=== PATIENT | female | born 1980 | race Caucasian/White ===

== ENCOUNTER 2016-05-27 16:22 | Emergency (ER) | payer OTHER ==
[2016-05-27] MEDS ORDERED: methylPREDNISolone SOD SUCCI 125 MG/2 ML VIAL IV STA (16:40)
[2016-05-27] MEDS ORDERED: FAMOTIDINE 20 MG/2 ML VIAL IV STA (16:40)
[2016-05-27] MEDS ORDERED: diphenhydrAMINE 50 MG/ML 1 ML VIAL IVP STA (16:40)
[2016-05-27] MEDS ORDERED: IPRATROPIUM-ALBUTEROL 3 ML NEB INHALATION STA (16:41)
[2016-05-27] MEDS ORDERED: ACETAMINOPHEN IV (For NPO) 1,000 MG in SALINE 1 100ML.BAG IVPB STA (17:40)
--- NOTE | 2016-05-27 19:23 | ED ---
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 She was it in the emergency department for quite a few hours she states and discharged early this morning she states she had a recurrence of the itching and slight difficulty breathing prior to admission here. She was given steroids and medication she normally is on histamine 2 blockers. (Sriram Galvan) - Related Data Home Medications Medication Instructions Recorded Confirmed Carisoprodol [Soma] 350 mg PO QID PRN 11/02/14 05/27/16 Gabapentin [Neurontin] 300 mg PO DAILY 11/02/14 05/27/16 Cetirizine HCl [Zyrtec] 5 mg PO HS 05/27/16 05/27/16 Ranitidine HCl [Zantac] 75 mg PO HS 05/27/16 05/27/16 oxyCODONE-APAP 5-325MG [Percocet 1 tab PO Q6HR PRN 05/27/16 05/27/16 5-325 mg] Previous Rx's Medication Instructions Recorded Ranitidine HCl [Zantac] 150 mg PO BID #20 tab 05/27/16 predniSONE 50 mg PO DAILY #5 tab 05/27/16 Allergies Allergy/AdvReac Type Severity Reaction Status Date / Time promethazine HCl Allergy Unknown Verified 05/27/16 17:44 [From Phenergan] shellfish derived [Shrimp] Allergy Anaphylaxis Verified 05/27/16 17:45 Tetanus Vaccines and Toxoid Allergy Unknown Verified 05/27/16 17:44 [Tetanus Vaccines & Toxoid] Sulfa (Sulfonamide AdvReac SEE COMMENT Verified 05/27/16 17:44 Antibiotics) Review of Systems ROS Other: All systems not noted in ROS Statement are negative. <Sriram Galvan - Last Filed: 05/27/16 19:19> ROS Other: All systems not noted in ROS Statement are negative. <Zeeshan Wallace - Last Filed: 05/27/16 20:01> ROS Statement: Those systems with pertinent positive or pertinent negative responses have been documented in the HPI. Past Medical History Past Medical History: Fibromyalgia History of Any Multi-Drug Resistant Organisms: None Reported Past Surgical History: Adenoidectomy, Breast Surgery, Section, Orthopedic Surgery, Tonsillectomy Additional Past Surgical History / Comment(s): FOOT SURGERY (RIGHT) LEFT KNEE SURGERY TIMES 3 Past Psychological History: PTSD Smoking Status: Never smoker Past Alcohol Use History: Occasional Past Drug Use History: None Reported <Sriram Galvan - Last Filed: 05/27/16 19:19> General Exam Limitations: no limitations General appearance: alert, anxious, in distress Head exam: Present: atraumatic, normocephalic, normal inspection Eye exam: Present: normal appearance, PERRL, EOMI. Absent: scleral icterus, conjunctival injection, periorbital swelling ENT exam: Present: other (Posterior pharyngeal hyperemia) Neck exam: Present: normal inspection, other (No stridor JVD or bruits at this time). Absent: tenderness, meningismus, lymphadenopathy Respiratory exam: Present: decreased breath sounds Cardiovascular Exam: Present: tachycardia GI/Abdominal exam: Present: soft, normal bowel sounds. Absent: distended, tenderness, guarding, rebound, rigid Rectal exam: Present: deferred Extremities exam: Present: full ROM. Absent: tenderness Back exam: Absent: tenderness Neurological exam: Present: alert, oriented X3, CN II-XII intact Psychiatric exam: Present: anxious Skin exam: Present: warm, dry, erythema <Sriram Galvan - Last Filed: 05/27/16 19:19> <Zeeshan Wallace - Last Filed: 05/27/16 20:01> - General Exam Comments Initial Comments: This is a well developed well-nourished awake alert oriented 3 female (Sriram Galvan) Course <Sriram Galvan - Last Filed: 05/27/16 19:19> <Zeeshan Wallace - Last Filed: 05/27/16 20:01> Vital Signs 05/27/16 05/27/16 05/27/16 16:28 16:57 17:06 Temperature 97.8 F Pulse Rate 121 H 110 H 120 H Respiratory 20 Rate Blood Pressure 158/97 O2 Sat by Pulse 97 Oximetry 05/27/16 18:05 Temperature Pulse Rate 98 Respiratory 16 Rate Blood Pressure O2 Sat by Pulse 98 Oximetry At 1956 and she feels fine and she wants to go home, she has no hives at this point no signs of ALLERGIC reaction at this point she begun on 1 him steroids prednisone 40 mg daily for next 5 days Zantac and 50 mg twice daily for next 10 days and Claritin 10 mg once daily for next 10 days she does advise to avoid water in the ED for next few days and return to the ER if symptoms get worse ( Zeeshan Wallace) - Reevaluation(s) Reevaluation #1: 05/27/16 19:22 Reevaluation of the patient reveals she is somewhat improved she initially still has some erythema and itchiness but this is improved. She was complaining of shaking and feeling chilled (Sriram Galvan) Reevaluation #2: 05/27/16 19:22 Patient's chills have diminished. She still feeling somewhat lightheaded she initially was offered admission versus being discharged she is not sure what she wants to do yet. She will be observed for a period of time. Patient was endorsed to Dr. Wallace who will make the final disposition (Sriram Galvan) Disposition <Sriram Galvan - Last Filed: 05/27/16 19:19> <Zeeshan Wallace - Last Filed: 05/27/16 20:01> Clinical Impression: Allergic reaction Disposition: HOME SELF-CARE Condition: Good Instructions: Anaphylaxis (ED) Prescriptions: Ranitidine HCl [Zantac] 150 mg PO BID #20 tab predniSONE 50 mg PO DAILY #5 tab Referrals: Sindi Rico MD [Primary Care Provider] - 1-2 days
[2016-05-27 20:14] VITALS: BP 116/68; PULSE 92; RESP 18; TEMP 99
== END 2016-05-27 20:13 | disposition home or self-care (01) ==
LOC: EC 16:22
DX: T78.1XXA Other adverse food reactions, not elsewhere classified, initial encounter (principal); R06.00 Dyspnea, unspecified; Z79.899 Other long term (current) drug therapy; Z88.2 Allergy status to sulfonamides; Z88.7 Allergy status to serum and vaccine; Z91.013 Allergy to seafood; Z88.8 Allergy status to other drugs, medicaments and biological substances
CPT/HCPCS: 99283; 96374; 96375 ×3; 94640; J1200; J2930; J0131

== ENCOUNTER 2016-08-11 19:39 | Emergency (ER) | payer BC, OTHER ==
[2016-08-11] MEDS ORDERED: HYDROcodone/APAP 5-325MG 1 EACH TAB PO STA (22:14)
[2016-08-11] MEDS ORDERED: HYDROmorphone 1 MG/ML 1 ML SYRINGE IM STA (22:16)
[2016-08-11] MEDS ORDERED: FLUCONAZOLE 150 MG TAB PO STA (22:16)
--- NOTE | 2016-08-11 22:21 | ED ---
Female Urogenital HPI - General Chief complaint: Urogenital Stated complaint: Poss cyst rupture Time Seen by Provider: 08/11/16 21:25 Source: patient, RN notes reviewed Mode of arrival: ambulatory Limitations: no limitations - History of Present Illness Initial comments: Patient is a 36-year-old female presents to the emergency room for evaluation of vaginal and pelvic pain. patient states on Tuesday she began having vaginal burning and itching with discharge. Patient states she tried Monistat with no relief of symptoms. Patient states she tried apple cider vinegar on a cotton ball that she inserted into her vagina with no relief of symptoms. patient states that she went to [facility] and they gave her an injection of Toradol and Rocephin and sent her here to be further evaluated. Patient states she has a history of ovarian cysts that she thinks ruptured. Patient denies fevers or chills. Patient states she's having extreme vaginal discomfort that radiates up into her belly button. Patient denies nausea or vomiting.patient denies history of STDs. - Related Data Home Medications Medication Instructions Recorded Confirmed Carisoprodol [Soma] 350 mg PO QID PRN 11/02/14 05/27/16 Gabapentin [Neurontin] 300 mg PO DAILY 11/02/14 05/27/16 Cetirizine HCl [Zyrtec] 5 mg PO HS 05/27/16 05/27/16 Ranitidine HCl [Zantac] 75 mg PO HS 05/27/16 05/27/16 oxyCODONE-APAP 5-325MG [Percocet 1 tab PO Q6HR PRN 05/27/16 05/27/16 5-325 mg] Previous Rx's Medication Instructions Recorded Ranitidine HCl [Zantac] 150 mg PO BID #20 tab 05/27/16 predniSONE 50 mg PO DAILY #5 tab 05/27/16 Doxycycline [Vibramycin] 100 mg PO Q12HR 14 Days 08/11/16 Allergies Allergy/AdvReac Type Severity Reaction Status Date / Time promethazine HCl Allergy Unknown Verified 05/27/16 17:44 [From Phenergan] shellfish derived [Shrimp] Allergy Anaphylaxis Verified 05/27/16 17:45 Tetanus Vaccines and Toxoid Allergy Unknown Verified 05/27/16 17:44 [Tetanus Vaccines & Toxoid] Sulfa (Sulfonamide AdvReac SEE COMMENT Verified 05/27/16 17:44 Antibiotics) Review of Systems ROS Statement: Those systems with pertinent positive or pertinent negative responses have been documented in the HPI. ROS Other: All systems not noted in ROS Statement are negative. Past Medical History Past Medical History: Fibromyalgia History of Any Multi-Drug Resistant Organisms: None Reported Past Surgical History: Adenoidectomy, Breast Surgery, Section, Orthopedic Surgery, Tonsillectomy Additional Past Surgical History / Comment(s): FOOT SURGERY (RIGHT) LEFT KNEE SURGERY TIMES 3 Past Psychological History: PTSD Smoking Status: Never smoker Past Alcohol Use History: Occasional Past Drug Use History: None Reported General Exam - General Exam Comments Initial Comments: laying in exam room, no acute distress. Limitations: no limitations General appearance: alert, in no apparent distress Head exam: Present: atraumatic, normocephalic, normal inspection Eye exam: Present: normal appearance ENT exam: Present: normal exam Neck exam: Present: normal inspection Respiratory exam: Present: normal lung sounds bilaterally. Absent: respiratory distress Cardiovascular Exam: Present: regular rate, normal rhythm, normal heart sounds External exam: Present: erythema, swelling Speculum exam: Present: vaginal discharge. Absent: normal speculum exam By manual exam: Present: cervical motion tenderness, adnexal tenderness Extremities exam: Present: normal inspection Back exam: Present: normal inspection Neurological exam: Present: alert, oriented X3, CN II-XII intact, normal gait Psychiatric exam: Present: normal affect, normal mood Skin exam: Present: warm, dry, intact, normal color. Absent: rash Course Vital Signs 08/11/16 08/12/16 19:55 00:05 Temperature 97.5 F L 97.8 F Pulse Rate 89 86 Respiratory 16 18 Rate Blood Pressure 125/69 134/82 O2 Sat by Pulse 95 97 Oximetry Medical Decision Making - Medical Decision Making Patient is a 36-year-old female presents to the emergency room for evaluation of pelvic pain. Ultrasound showed a 2 cm simple ovarian cyst. No other acute findings noted. Patient was very uncomfortable during pelvic exam. Secondary to his symptoms, we'll treat patient for PID. Patient is a 29 given Rocephin at [facility]. TPatient will be given azithromycin and sent home with doxycycline. Patient states she understands everything that was discussed with her. Return parameters discussed. Case discussed with Dr. Wallace. - Lab Data Lab Results 08/11/16 08/11/16 Range/Units 23:00 23:00 Urine Color Yellow Urine Appearance Clear (Clear) Urine pH 6.0 (5.0-8.0) Ur Specific [place] 1.012 (1.001-1.035) Urine Protein Negative (Negative) Urine Glucose (UA) Negative (Negative) Urine Ketones Trace H (Negative) Urine Blood Small H (Negative) Urine Nitrite Negative (Negative) Urine Bilirubin Negative (Negative) Urine Urobilinogen <2.0 (<2.0) mg/dL Ur Leukocyte Esterase Moderate H (Negative) Urine RBC 11 H (0-5) /hpf Urine WBC 5 (0-5) /hpf Ur Squamous Epith Cells 1 (0-4) /hpf Urine Bacteria Rare H (None) /hpf Urine Mucus Rare H (None) /hpf Urine HCG, Qual Not Detected (Not Detectd) - Radiology Data Radiology results: report reviewed, image reviewed Disposition Clinical Impression: PID (pelvic inflammatory disease), Left ovarian cyst Disposition: HOME SELF-CARE Condition: Good Instructions: Pelvic Inflammatory Disease (ED), Ovarian Cyst (ED) Additional Instructions: Take antibiotics as directed. Refrain from sexual activity until symptoms resolve. Please follow-up with [employer]. If any new symptom arises or symptoms worsen, return to ER as soon as possible. Prescriptions: Doxycycline [Vibramycin] 100 mg PO Q12HR 14 Days Referrals: Sindi Rico MD [Primary Care Provider] - 1-2 days Joy Rodriguez DO [Doctor of Osteopathic Medicine] - 1-2 days Time of Disposition: 23:57
[2016-08-11 23:13] LABS: Appearance,Urine Clear (Clear); Bacteria,Urine Rare /hpf; Bilirubin,Urine Negative (Negative); Glucose,Urine (UA) Negative (Negative); Ketones,Urine Trace (Negative); Leukocyte Esterase,Urine Moderate (Negative); Mucus,Urine Rare /hpf; Nitrite,Urine Negative (Negative); Particle Count 3818; Protein,Urine Negative (Negative); RBC,Urine 11 /hpf (0-5); Specific Gravity,Urine 1.012 (1.001-1.035); Squamous Epithelial Cell,Urine 1 /hpf (0-4); UA Billing (MACRO vs. MICRO) MICRO; Urobilinogen,Urine <2.0 mg/dL (<2.0); WBC,Urine 5 /hpf (0-5)
--- NOTE | 2016-08-11 23:43 | US ---
EXAM: US Pelvis, Transvaginal CLINICAL HISTORY: Reason: Pelvic pain. TECHNIQUE: Real-time transvaginal pelvic ultrasound (complete) with image documentation. Transvaginal imaging was used for better evaluation of the endometrium and adnexa. COMPARISON: No relevant prior studies available. FINDINGS: Uterus/cervix: Uterus measures 8.0 x 4.6 x 4.3 cm. Endometrial stripe was measured at 8-9 mm. No myometrial mass. Right ovary: Right ovary 2.5 x 1.9 x 1.7 cm. Normal blood flow. Left ovary: Left ovary 3.7 x 2.3 x 1.8 cm, containing a simple appearing 2.0 x 1.9 cm cyst within. Normal blood flow. Free fluid: No free fluid. Bladder: Empty bladder which cannot be evaluated with this probe. IMPRESSION: 1. Simple appearing 2.0 cm left ovarian cyst, most likely physiologic. 2. Otherwise unremarkable transvaginal pelvic ultrasound.
[2016-08-11] MEDS ORDERED: AZITHROMYCIN 500 MG TAB PO STA (23:56)
[2016-08-11] MEDS ORDERED: DOXYCYCLINE 50 MG CAP PO STA (23:57)
[2016-08-12 00:06] VITALS: BP 134/82; PULSE 86; RESP 18; TEMP 97.8
== END 2016-08-12 00:15 | disposition home or self-care (01) ==
LOC: EC 19:39
DX: N83.202 Unspecified ovarian cyst, left side (principal); M79.7 Fibromyalgia; N73.9 Female pelvic inflammatory disease, unspecified; Z79.899 Other long term (current) drug therapy; Z88.2 Allergy status to sulfonamides; Z88.7 Allergy status to serum and vaccine; Z88.8 Allergy status to other drugs, medicaments and biological substances; Z91.013 Allergy to seafood
CPT/HCPCS: 87591; 87491; 81001; 81025; 93975; 76830; 99284; 96372; J1170

== ENCOUNTER 2017-04-14 09:29 | Day surgery (SDC) | payer BC ==
[2017-04-12 09:13] VITALS: BMI 29.2
[~2017-04-14 09:29] MED LIST: LACTATED RINGERS 1,000 ML IV SCH
[2017-04-14 09:49] VITALS: TEMP 98.5
[2017-04-14] MEDS ORDERED: LIDOCAINE 1% 20 ML VIAL (10MG/ML) FOR IV START INTRADERMA ONE (09:56)
[2017-04-14] MEDS ORDERED: LIDOCAINE 1% INJ 10MG/ML (20 ML MDV) ONE (10:47)
[2017-04-14] MEDS ORDERED: PROPOFOL 10 MG/ML 20 ML VIAL IV ONE (10:47)
--- NOTE | 2017-04-14 10:49 | P.GSHP ---
History of Present Illness H&P Date: 04/14/17 Chief Complaint: Hemorrhoids, GI bleed This a 29-year-old female patient stay for colonoscopy. Patient's had issues with hemorrhoids and rectal bleeding. Past Medical History Past Medical History: Fibromyalgia Additional Past Medical History / Comment(s): RSD. MCAD. FIBROCYSTIC TISSUE. IBS History of Any Multi-Drug Resistant Organisms: None Reported Past Surgical History: Adenoidectomy, Breast Surgery, Section, Orthopedic Surgery, Tonsillectomy Additional Past Surgical History / Comment(s): FOOT SURGERY (RIGHT) ,LEFT KNEE SURGERY TIMES 3, RT HIP SX, COLONOSCOPY, Past Anesthesia/Blood Transfusion Reactions: Previous Problems w/ Anesthesia Additional Past Anesthesia/Blood Transfusion Reaction / Comment(s): RESISTANCE TO ANESTHESIA Smoking Status: Never smoker - Past Family History Mother Family Medical History: Cancer Medications and Allergies Home Medications Medication Instructions Recorded Confirmed Type Gabapentin [Neurontin] 300 mg PO DAILY 11/02/14 04/14/17 History Cetirizine HCl [Zyrtec] 5 mg PO HS 05/27/16 04/14/17 History Baclofen [Lioresal] 20 mg PO HS 04/12/17 04/14/17 History Ranitidine HCl [Zantac] 150 mg PO DAILY 04/12/17 04/14/17 History diphenhydrAMINE [Benadryl] 50 mg PO HS PRN 04/12/17 04/14/17 History Allergies Allergy/AdvReac Type Severity Reaction Status Date / Time promethazine HCl Allergy TREMORS, Verified 04/12/17 09:00 [From Phenergan] VISION CHANGES shellfish derived [Shrimp] Allergy Anaphylaxis Verified 05/27/16 17:45 Tetanus Vaccines and Toxoid Allergy SWELLING Verified 04/12/17 09:00 [Tetanus Vaccines & Toxoid] AND REDNESS AT INJECTION SITE Sulfa (Sulfonamide AdvReac SEE COMMENT Verified 05/27/16 17:44 Antibiotics) Surgical - Exam Vital Signs Temp Pulse Resp BP Pulse Ox 98.5 F 88 16 111/76 97 04/14/17 09:48 04/14/17 09:48 04/14/17 09:48 04/14/17 09:48 04/14/17 09:48 - General well developed, no distress - Eyes PERRL - ENT normal pinna - Neck no masses - Respiratory normal expansion - Cardiovascular Rhythm: regular - Abdomen Abdomen: soft, non tender Assessment and Plan Assessment: Hemorrhoids, GI bleed. We'll perform colonoscopy.
--- NOTE | 2017-04-14 11:02 | P.OP ---
Date of Procedure: 04/14/17 Preoperative Diagnosis: GI bleed Hemorrhoids Postoperative Diagnosis: Internal and external hemorrhoids Procedure(s) Performed: Colonoscopy Anesthesia: MAC Surgeon: Osiel Farnsworth Pathology: none sent Condition: stable Disposition: PACU Description of Procedure: She was placed on the endoscopy table lateral position. She received IV sedation. Digital rectal exam was performed which revealed internal and external hemorrhoids. The flexible colonoscope was then placed patient anus and passed throughout the entire colon. The ileocecal valve was visualized. The cecum, ascending and transverse colon appeared normal. Scope was then brought back and sigmoid colon was normal. The scope summer back the rectum and this was normal. Scope was withdrawn through the anus and internal and external hemorrhoids were noted. Scope was withdrawn for patient.
[2017-04-14 11:31] VITALS: RESP 18
[2017-04-14 11:34] VITALS: BP 113/79; PULSE 85
--- NOTE | 2017-04-21 07:12 | CDI ---
Outpatient Documentation Clarification Form Date: 04/20/2017 CDS/Dental Resident Name: Torrey Collins Phone: If any questions, call Bee Gilman Water Safety Teacher at [phone] Patient Name: Lakshmi Johnson Admit Date: 04/14/2017 Discharge Date: 04/14/2017 ATTENTION: The [facility] Coding Staff appreciate your assistance in clarifying documentation. Please respond to the clarification below the line at the bottom and electronically sign. The [facility] Coding staff will review the response and follow-up if needed. Please note: Queries are made part of the Legal Health Record. If you have any questions, please contact the Water Safety Teacher. Dear Dr. Farnsworth, Indication for colonoscopy was GI bleeding; Post-operative diagnosis was Internal and external hemorrhoids, Please clarify the etiology of GI Bleeding was this secondary to hemorrhoids or incidental finding Based on your clinical opinion please clarify the etiology of GI Bleeding and relation with hemorrhoids Thank you for your kind consideration. I am unclear whether his source of GI bleeding was due to his internal and external hemorrhoids. SORAYA
== END 2017-04-14 11:35 | disposition home or self-care (01) ==
LOC: ORWHC2ENDO 09:29
PROVIDERS: ATTEND Surgery
DX: K64.8 Other hemorrhoids (principal); K64.4 Residual hemorrhoidal skin tags; K92.2 Gastrointestinal hemorrhage, unspecified; M79.7 Fibromyalgia; K58.9 Irritable bowel syndrome, unspecified; G90.50 Complex regional pain syndrome I, unspecified; Z88.2 Allergy status to sulfonamides; Z88.7 Allergy status to serum and vaccine; Z88.8 Allergy status to other drugs, medicaments and biological substances; Z91.013 Allergy to seafood; Z79.899 Other long term (current) drug therapy
CPT/HCPCS: 81025; 45378; J2001; J2704

== ENCOUNTER → 2017-04-18 | Outpatient (CLI) | payer BC ==
--- NOTE | 2017-04-19 07:48 | USB ---
Reason for exam: clinical finding. History: Family history of breast cancer in paternal aunt at age 48, breast cancer in paternal grandmother, and breast cancer in maternal aunt. Benign US LT VAD breast biopsy of the right breast, June 21, 2012. Benign right breast aspiration of the right breast, June 21, 2012. Taking hormonal contraceptives for 5 years beginning at age 17. Indicated problem(s): pain in both breasts. Physical Findings: Nurse did not find any significant physical abnormalities on exam. US Breast BILAT Right breast ultrasound includes all four quadrants, the retroareolar region and axilla. Finding demonstrates no cystic or solid lesion seen. Left breast ultrasound includes all four quadrants, the retroareolar region and axilla. Finding demonstrates no cystic or solid lesion seen. These results were verbally communicated with the patient and result sheet given to the patient on 04/18/17. ASSESSMENT: Negative, BI-RAD 1 RECOMMENDATION: Routine screening mammogram of both breasts at age 39. (unless clinical indication to start sooner) Manage on a clinical basis with regard to breast pain.
== END | disposition home or self-care (01) ==
LOC: RADUSWWP 14:20
PROVIDERS: ATTEND Surgery
DX: N60.01 Solitary cyst of right breast (principal); N60.02 Solitary cyst of left breast

== ENCOUNTER 2018-03-20 16:26 | Inpatient (IN) | payer BC, OTHER ==
[2018-03-20] MEDS ORDERED: SODIUM CHLORIDE 0.9% 2,000 ML IV STA (18:11)
[2018-03-20] MEDS ORDERED: HYDROmorphone 1 MG/ML 1 ML SYRINGE IVP STA (18:11)
[2018-03-20] MEDS ORDERED: ONDANSETRON 4 MG/2 ML VIAL IVP STA ×2 (18:11→19:29)
[2018-03-20] MEDS ORDERED: PANTOPRAZOLE 40 MG/10 ML VIAL IVP STA (18:11)
[2018-03-20 18:36] LABS: Basophils # (A) 0.3 k/uL (0-0.2); Basophils % (A) 2 %; Eosinophils # (A) 0.2 k/uL (0-0.7); Eosinophils % (A) 1 %; HCT 41.2 % (34.0-46.0); HGB 13.8 gm/dL (11.4-16.0); Lymphocytes # (A) 0.2 k/uL (1.0-4.8); Lymphocytes % (A) 1 %; MCH 31.2 pg (25.0-35.0); MCHC 33.6 g/dL (31.0-37.0); Monocytes # (A) 0.5 k/uL (0-1.0); Monocytes % (A) 3 %; Neutrophils # (A) 15.5 k/uL (1.3-7.7); Neutrophils % (A) 93 %; Platelet Count 337 k/uL (150-450); RBC 4.43 m/uL (3.80-5.40); RDW 13.4 % (11.5-15.5); WBC 16.6 k/uL (3.8-10.6)
--- NOTE | 2018-03-20 18:39 | ED ---
Abdominal Pain HPI - General Source: patient, family, RN notes reviewed Mode of arrival: ambulatory Limitations: no limitations <Gordon Katz - Last Filed: 03/20/18 20:59> <Viviana Arias - Last Filed: 03/20/18 23:53> - General Chief Complaint: Abdominal Pain Stated Complaint: vomiting/poss ulcer Time Seen by Provider: 03/20/18 18:05 - History of Present Illness Initial Comments: 37-year-old female presents emergency Department chief complaint of severe upper abdominal pain. Patient states started earlier this morning after drinking 3 sips of coffee with cream her. Patient states she has had ongoing heartburn issues over the last 1 month. She does admit that she take Zantac and Pepcid daily. Patient never had an EGD or colonoscopy. Patient denies any current GI physician. Patient denies constipation, dysuria. Patient has no any frequency, dysuria. Patient states that she had slight diarrhea thought she saw blood but never saw again. Patient does have known hemorrhoids. Patient states she does not take any blood thinners. Patient has no history: Significant for appendectomy. (Gordon Katz) - Related Data Home Medications Medication Instructions Recorded Confirmed Gabapentin [Neurontin] 300 mg PO HS 11/02/14 03/20/18 Cetirizine HCl [Zyrtec] 5 mg PO HS 05/27/16 03/20/18 Ranitidine HCl [Zantac] 150 mg PO HS 04/12/17 03/20/18 diphenhydrAMINE [Benadryl] 50 mg PO HS PRN 04/12/17 03/20/18 Allergies Allergy/AdvReac Type Severity Reaction Status Date / Time promethazine HCl Allergy TREMORS, Verified 03/20/18 18:14 [From Phenergan] VISION CHANGES shellfish derived [Shrimp] Allergy Anaphylaxis Verified 03/20/18 18:14 Tetanus Vaccines and Toxoid Allergy SWELLING Verified 03/20/18 18:14 [Tetanus Vaccines & Toxoid] AND REDNESS AT INJECTION SITE Sulfa (Sulfonamide AdvReac SEE COMMENT Verified 03/20/18 18:14 Antibiotics) sulfa eye drops Allergy Unknown Uncoded 03/20/18 16:41 Review of Systems ROS Other: All systems not noted in ROS Statement are negative. <Gordon Katz - Last Filed: 03/20/18 20:59> ROS Other: All systems not noted in ROS Statement are negative. <AriasViviana fair P - Last Filed: 03/20/18 23:53> ROS Statement: Those systems with pertinent positive or pertinent negative responses have been documented in the HPI. Past Medical History Past Medical History: Fibromyalgia Additional Past Medical History / Comment(s): RSD. MCAD. FIBROCYSTIC TISSUE. IBS History of Any Multi-Drug Resistant Organisms: None Reported Past Surgical History: Adenoidectomy, Breast Surgery, Section, Orthopedic Surgery, Tonsillectomy Additional Past Surgical History / Comment(s): FOOT SURGERY (RIGHT) ,LEFT KNEE SURGERY TIMES 3, RT HIP SX, COLONOSCOPY, Past Anesthesia/Blood Transfusion Reactions: Previous Problems w/ Anesthesia Additional Past Anesthesia/Blood Transfusion Reaction / Comment(s): RESISTANCE TO ANESTHESIA Past Psychological History: PTSD Smoking Status: Never smoker Past Alcohol Use History: Occasional Past Drug Use History: None Reported - Past Family History Mother Family Medical History: Cancer <Gordon Katz M - Last Filed: 03/20/18 20:59> - Past Family History Mother Family Medical History: Cancer, Thyroid Disorder Father Family Medical History: Cancer, Hypertension <HugoAquilinoViviana P - Last Filed: 03/20/18 23:53> General Exam Limitations: no limitations General appearance: alert, in no apparent distress Head exam: Present: atraumatic, normocephalic, normal inspection Eye exam: Present: normal appearance, PERRL, EOMI. Absent: scleral icterus, conjunctival injection, periorbital swelling ENT exam: Present: normal exam, normal oropharynx, mucous membranes moist Neck exam: Present: normal inspection, full ROM. Absent: tenderness, meningismus, lymphadenopathy Respiratory exam: Present: normal lung sounds bilaterally. Absent: respiratory distress, wheezes, rales, rhonchi, stridor Cardiovascular Exam: Present: normal rhythm, tachycardia, normal heart sounds. Absent: systolic murmur, diastolic murmur, rubs, gallop, clicks GI/Abdominal exam: Present: soft, tenderness (Moderate upper abdominal tenderness), normal bowel sounds. Absent: distended, guarding, rebound, rigid Back exam: Absent: CVA tenderness (R), CVA tenderness (L) Skin exam: Present: warm, dry, intact, normal color. Absent: rash <Dedoe,Gordon M - Last Filed: 03/20/18 20:59> Vital Signs 03/20/18 03/20/18 03/20/18 16:37 19:18 21:52 Temperature 98.3 F Pulse Rate 133 H 102 H 88 Respiratory 20 18 16 Rate Blood Pressure 127/83 122/86 122/88 O2 Sat by Pulse 99 100 100 Oximetry Medical Decision Making - Lab Data Result diagrams: 03/20/18 17:57 03/20/18 17:57 <Gordon Katz - Last Filed: 03/20/18 20:59> - Lab Data Result diagrams: 03/20/18 17:57 03/20/18 17:57 <Viviana Arias - Last Filed: 03/20/18 23:53> - Medical Decision Making 37-year-old female presented for abdominal pain. Patient's found to have evidence of [id number] bowel disease. Patient's had intractable abdominal pain with multiple rounds of IV pain meds. Patient will be admitted for GI consult. Control hydration (Gordon Katz) I personally saw and examined the patient. I reviewed and agree with the mid- level provider findings including all diagnostic interpretations and treatment plans as written unless otherwise stated. I discussed patient care with Dr. Fuentes who agreed with plan for admission with consult to gastroenterology and requested that 60 mg IV Solu-Medrol be ordered every 6 hours. (Viviana Arias) - Lab Data Lab Results 03/20/18 03/20/18 03/20/18 Range/Units 17:57 17:57 17:57 WBC 16.6 H (3.8-10.6) k/uL RBC 4.43 (3.80-5.40) m/uL Hgb 13.8 (11.4-16.0) gm/dL Hct 41.2 (34.0-46.0) % MCV 93.0 (80.0-100.0) fL MCH 31.2 (25.0-35.0) pg MCHC 33.6 (31.0-37.0) g/dL RDW 13.4 (11.5-15.5) % Plt Count 337 (150-450) k/uL Neutrophils % 93 % Lymphocytes % 1 % Monocytes % 3 % Eosinophils % 1 % Basophils % 2 % Neutrophils # 15.5 H (1.3-7.7) k/uL Lymphocytes # 0.2 L (1.0-4.8) k/uL Monocytes # 0.5 (0-1.0) k/uL Eosinophils # 0.2 (0-0.7) k/uL Basophils # 0.3 H (0-0.2) k/uL Sodium 139 (137-145) mmol/L Potassium 3.9 (3.5-5.1) mmol/L Chloride 104 (98-107) mmol/L Carbon Dioxide 25 (22-30) mmol/L Anion Gap 10 mmol/L BUN 13 (7-17) mg/dL Creatinine 0.62 (0.52-1.04) mg/dL Est GFR (CKD-EPI)AfAm >90 (>60 ml/min/1.73 sqM) Est GFR (CKD-EPI)NonAf >90 (>60 ml/min/1.73 sqM) Glucose 102 H (74-99) mg/dL Plasma Lactic Acid Nathanael 1.3 (0.7-2.0) mmol/L Calcium 9.5 (8.4-10.2) mg/dL Total Bilirubin 0.9 (0.2-1.3) mg/dL AST 20 (14-36) U/L ALT 21 (9-52) U/L Alkaline Phosphatase 77 (38-126) U/L Total Protein 7.3 (6.3-8.2) g/dL Albumin 4.6 (3.5-5.0) g/dL Amylase 37 (30-110) U/L Lipase 31 (23-300) U/L Urine Color Urine Appearance (Clear) Urine pH (5.0-8.0) Ur Specific [place] (1.001-1.035) Urine Protein (Negative) Urine Glucose (UA) (Negative) Urine Ketones (Negative) Urine Blood (Negative) Urine Nitrite (Negative) Urine Bilirubin (Negative) Urine Urobilinogen (<2.0) mg/dL Ur Leukocyte Esterase (Negative) Urine RBC (0-5) /hpf Urine WBC (0-5) /hpf Ur Squamous Epith Cells (0-4) /hpf Urine Mucus (None) /hpf Urine HCG, Qual (Not Detectd) 03/20/18 03/20/18 Range/Units 19:14 19:14 WBC (3.8-10.6) k/uL RBC (3.80-5.40) m/uL Hgb (11.4-16.0) gm/dL Hct (34.0-46.0) % MCV (80.0-100.0) fL MCH (25.0-35.0) pg MCHC (31.0-37.0) g/dL RDW (11.5-15.5) % Plt Count (150-450) k/uL Neutrophils % % Lymphocytes % % Monocytes % % Eosinophils % % Basophils % % Neutrophils # (1.3-7.7) k/uL Lymphocytes # (1.0-4.8) k/uL Monocytes # (0-1.0) k/uL Eosinophils # (0-0.7) k/uL Basophils # (0-0.2) k/uL Sodium (137-145) mmol/L Potassium (3.5-5.1) mmol/L Chloride (98-107) mmol/L Carbon Dioxide (22-30) mmol/L Anion Gap mmol/L BUN (7-17) mg/dL Creatinine (0.52-1.04) mg/dL Est GFR (CKD-EPI)AfAm (>60 ml/min/1.73 sqM) Est GFR (CKD-EPI)NonAf (>60 ml/min/1.73 sqM) Glucose (74-99) mg/dL Plasma Lactic Acid Nathanael (0.7-2.0) mmol/L Calcium (8.4-10.2) mg/dL Total Bilirubin (0.2-1.3) mg/dL AST (14-36) U/L ALT (9-52) U/L Alkaline Phosphatase (38-126) U/L Total Protein (6.3-8.2) g/dL Albumin (3.5-5.0) g/dL Amylase (30-110) U/L Lipase (23-300) U/L Urine Color Yellow Urine Appearance Clear (Clear) Urine pH 7.0 (5.0-8.0) Ur Specific [place] 1.023 (1.001-1.035) Urine Protein Trace H (Negative) Urine Glucose (UA) Negative (Negative) Urine Ketones 1+ H (Negative) Urine Blood Moderate H (Negative) Urine Nitrite Negative (Negative) Urine Bilirubin Negative (Negative) Urine Urobilinogen <2.0 (<2.0) mg/dL Ur Leukocyte Esterase Negative (Negative) Urine RBC 12 H (0-5) /hpf Urine WBC 1 (0-5) /hpf Ur Squamous Epith Cells 5 H (0-4) /hpf Urine Mucus Occasional H (None) /hpf Urine HCG, Qual Not Detected (Not Detectd) Disposition <Gordon Katz M - Last Filed: 03/20/18 20:59> <Viviana Arias P - Last Filed: 03/20/18 23:53> Clinical Impression: IBD (inflammatory bowel disease), Intractable abdominal pain Disposition: ADMITTED IP TO THIS HOSP Condition: Fair
[2018-03-20 18:45] LABS: ALT 21 U/L (9-52); AST 20 U/L (14-36); Albumin 4.6 g/dL (3.5-5.0); Alkaline Phosphatase 77 U/L (38-126); Amylase 37 U/L (30-110); Anion Gap 10 mmol/L; Blood Urea Nitrogen 13 mg/dL (7-17); Calcium 9.5 mg/dL (8.4-10.2); Carbon Dioxide 25 mmol/L (22-30); Chloride 104 mmol/L (98-107); Glucose 102 mg/dL (74-99); Lipase 31 U/L (23-300); Potassium 3.9 mmol/L (3.5-5.1); Sodium 139 mmol/L (137-145); Total Bilirubin 0.9 mg/dL (0.2-1.3); Total Protein 7.3 g/dL (6.3-8.2)
--- NOTE | 2018-03-20 19:14 | US ---
EXAMINATION TYPE: US gallbladder DATE OF EXAM: 03/20/2018 COMPARISON: NONE CLINICAL HISTORY: Pain. Pain and vomiting EXAM MEASUREMENTS: Liver Length: 17.4 cm Gallbladder Wall: 0.3 cm CBD: 0.5 cm Right Kidney: 9.6 x 3.7 x 4.5 cm Pancreas: Duct visualized 2 mm. Liver: wnl Gallbladder: wnl Evidence for sonographic Hartley's sign: No CBD: wnl Right Kidney: wnl IMPRESSION: Negative right upper quadrant abdominal sonogram. No gallstones or dilated ducts. No free fluid.
[2018-03-20] MEDS ORDERED: IOPAMIDOL-300 CONTRAST 30 ML VIAL (ORAL USE) PO PRN (19:27)
[2018-03-20] MEDS ORDERED: HYDROmorphone 0.5 MG/0.5 ML SYRINGE IVP STA ×2 (19:29→20:59)
[2018-03-20 19:34] LABS: Appearance,Urine Clear (Clear); Bilirubin,Urine Negative (Negative); Blood,Urine Moderate (Negative); Color,Urine Yellow; Glucose,Urine (UA) Negative (Negative); Ketones,Urine 1+ (Negative); Leukocyte Esterase,Urine Negative (Negative); Mucus,Urine Occasional /hpf; Nitrite,Urine Negative (Negative); Protein,Urine Trace (Negative); RBC,Urine 12 /hpf (0-5); Specific Gravity,Urine 1.023 (1.001-1.035); Squamous Epithelial Cell,Urine 5 /hpf (0-4); Urobilinogen,Urine <2.0 mg/dL (<2.0); WBC,Urine 1 /hpf (0-5)
--- NOTE | 2018-03-20 20:29 | CT ---
EXAMINATION TYPE: CT abdomen pelvis w con DATE OF EXAM: 03/20/2018 COMPARISON: None HISTORY: abdominal pain CT DLP: 741 mGycm Automated exposure control for dose reduction was used. TECHNIQUE: Helical acquisition of images was performed from the lung bases through the pelvis. CONTRAST: Performed with Oral Contrast and with IV Contrast, patient injected with 100 mL of Isovue 300. FINDINGS: There is mild subsegmental atelectasis at the lung bases. There is no pleural effusion. Heart size is normal. Liver spleen pancreas appear normal. Bile ducts are not dilated. Gallbladder appears normal. There is no adrenal mass. The kidneys of normal size and contour. There is no hydronephrosis. There is no ret roperitoneal adenopathy. There is mild free fluid in the pelvis. Bladder distends smoothly. There is no inguinal hernia. Kidneys show satisfactory contrast opacification. Uterus is anteverted. I see no pelvic mass. There is some wall thickening of the distal ileum. I see no sign of a bowel obstruction. The appendix appears normal. IMPRESSION: THERE ARE MULTIPLE LOOPS OF DISTAL ILEUM WITH WALL THICKENING SUGGESTIVE OF INFLAMMATORY BOWEL DISEAS E. NO FREE AIR. NORMAL APPENDIX.
[2018-03-20] MEDS ORDERED: diphenhydrAMINE 50 MG/ML 1 ML VIAL IVP STA (20:59)
[2018-03-20] MEDS ORDERED: MAG HYDROX/AL HYDROX/SIMETH 30 ML, HYOSCYAMINE ELIXIR 10 ML, CIMETIDINE HCL 300 MG PO STA ×3 (20:59)
[2018-03-20] MEDS ORDERED: NALOXONE 0.4 MG/ML 1 ML VIAL IV PRN (21:00)
[2018-03-20] MEDS ORDERED: HYDROmorphone 0.5 MG/0.5 ML SYRINGE IVP PRN (21:00)
[2018-03-20 22:23] VITALS: BMI 28.3
[2018-03-20] MEDS ORDERED: diphenhydrAMINE 25 MG CAP PO PRN (23:13)
[2018-03-20] MEDS: methylPREDNISolone SOD SUCCI 125 MG/2 ML VIAL IV SCH ×2 (23:19→23:23)
[2018-03-21] MEDS: HYDROmorphone 1 MG/ML 1 ML SYRINGE IVP PRN ×6 (02:09→22:57)
[2018-03-21] MEDS: ONDANSETRON 4 MG/2 ML VIAL IVP PRN ×2 (05:08→20:09)
[2018-03-21] MEDS: methylPREDNISolone SOD SUCCI 125 MG/2 ML VIAL IV SCH (05:56)
[2018-03-21] MEDS: CYCLOBENZAPRINE 10 MG TAB PO PRN ×3 (05:57→22:58)
[2018-03-21] MEDS: SODIUM CHLORIDE 0.9% 1,000 ML IV SCH ×3 (07:38→22:10)
[2018-03-21 09:16] LABS: Basophils % (A) 0 %; Eosinophils % (A) 0 %; HCT 35.9 % (34.0-46.0); HGB 11.9 gm/dL (11.4-16.0); Lymphocytes # (A) 0.3 k/uL (1.0-4.8); Lymphocytes % (A) 3 %; MCH 31.6 pg (25.0-35.0); MCHC 33.3 g/dL (31.0-37.0); MCV 94.8 fL (80.0-100.0); Mean Platelet Volume 7.1; Monocytes # (A) 0.1 k/uL (0-1.0); Monocytes % (A) 1 %; Neutrophils # (A) 8.8 k/uL (1.3-7.7); Neutrophils % (A) 95 %; Platelet Count 286 k/uL (150-450); RBC 3.78 m/uL (3.80-5.40); RDW 13.6 % (11.5-15.5); WBC 9.2 k/uL (3.8-10.6)
[2018-03-21] MEDS: PANTOPRAZOLE 40 MG/10 ML VIAL IV SCH (09:19)
[2018-03-21 09:35] LABS: ALT 16 U/L (9-52); AST 16 U/L (14-36); Albumin 3.8 g/dL (3.5-5.0); Alkaline Phosphatase 53 U/L (38-126); Anion Gap 10 mmol/L; Blood Urea Nitrogen 7 mg/dL (7-17); Carbon Dioxide 22 mmol/L (22-30); Chloride 106 mmol/L (98-107); Glucose 155 mg/dL (74-99); Potassium 4.3 mmol/L (3.5-5.1); Sodium 138 mmol/L (137-145); Total Bilirubin 0.4 mg/dL (0.2-1.3); Total Protein 6.4 g/dL (6.3-8.2)
--- NOTE | 2018-03-21 10:37 | P.HPIM ---
History of Present Illness H&P Date: 03/21/18 This is a 37-year-old female patient of Dr. Rico. Patient presented to the emergency room with complaint of right upper abdominal pain. Patient reports that she's been having intermittent abdominal discomfort for the past couple months. Patient states yesterday she had 3 sips of coffee and then experienced severe upper abdominal pain with vomiting and diarrhea. Patient has past medical history of fibromyalgia, MCAD, anxiety and PTSD. Gallbladder ultrasound completed showing negative right upper quadrant abdominal sonogram. No gallstones or dilated ducts. No free fluid. Abdominal pelvic CT completed showing multiple loops of distal ileum or pleural thickening suggestive of inflammatory bowel disease. No free air. Normal appendix. Normal appendix. Amylase and lipase within normal limits. Initial white blood cell 16.6. Patient did receive some fluids. Repeat WBC 9.2. C. diff stool sample has been ordered. GI services have been consulted. Patient remains afebrile. At this time patient denies chest pain or shortness of breath. Patient is complaining of some abdominal discomfort to palpation in with movement. Patient denies nausea or vomiting at this time. Patient denies any urinary burning or frequency. Review of Systems Please refer to HPI otherwise unremarkable Past Medical History Past Medical History: Fibromyalgia Additional Past Medical History / Comment(s): RSD. MCAD. FIBROCYSTIC TISSUE. EDS History of Any Multi-Drug Resistant Organisms: None Reported Past Surgical History: Adenoidectomy, Breast Surgery, Section, Orthopedic Surgery, Tonsillectomy Additional Past Surgical History / Comment(s): FOOT SURGERY (RIGHT) ,LEFT KNEE SURGERY TIMES 3, RT HIP SX, COLONOSCOPY, nerve blocks in back Past Anesthesia/Blood Transfusion Reactions: Previous Problems w/ Anesthesia Additional Past Anesthesia/Blood Transfusion Reaction / Comment(s): RESISTANCE TO ANESTHESIA Past Psychological History: Anxiety, PTSD Additional Psychological History / Comment(s): daughter had brain surgery and this caused some slight anxiety Smoking Status: Never smoker Past Alcohol Use History: Occasional Past Drug Use History: None Reported - Past Family History Mother Family Medical History: Cancer, Thyroid Disorder Father Family Medical History: Cancer, Hypertension Medications and Allergies Home Medications Medication Instructions Recorded Confirmed Type Gabapentin [Neurontin] 300 mg PO HS 11/02/14 03/20/18 History Cetirizine HCl [Zyrtec] 5 mg PO HS 05/27/16 03/20/18 History Ranitidine HCl [Zantac] 150 mg PO HS 04/12/17 03/20/18 History diphenhydrAMINE [Benadryl] 50 mg PO HS PRN 04/12/17 03/20/18 History Allergies Allergy/AdvReac Type Severity Reaction Status Date / Time promethazine HCl Allergy TREMORS, Verified 03/20/18 18:14 [From Phenergan] VISION CHANGES shellfish derived [Shrimp] Allergy Anaphylaxis Verified 03/20/18 18:14 Tetanus Vaccines and Toxoid Allergy SWELLING Verified 03/20/18 18:14 [Tetanus Vaccines & Toxoid] AND REDNESS AT INJECTION SITE Sulfa (Sulfonamide AdvReac SEE COMMENT Verified 03/20/18 18:14 Antibiotics) sulfa eye drops Allergy Unknown Uncoded 03/20/18 16:41 Physical Exam Vitals: Vital Signs Temp Pulse Pulse Resp BP BP BP 03/21/18 07:15 98.4 F 99 16 108/71 03/21/18 04:58 108/71 03/21/18 04:00 96 15 03/21/18 00:00 96 15 03/20/18 22:20 96 15 03/20/18 22:16 98.2 F 96 15 125/87 03/20/18 21:52 88 16 122/88 03/20/18 19:18 102 H 18 122/86 03/20/18 16:37 98.3 F 133 H 20 127/83 Pulse Ox 03/21/18 07:15 96 03/21/18 04:58 03/21/18 04:00 03/21/18 00:00 03/20/18 22:20 03/20/18 22:16 100 03/20/18 21:52 100 03/20/18 19:18 100 03/20/18 16:37 99 Intake and Output 03/20/18 03/21/18 03/21/18 22:59 06:59 14:59 Other: Voiding Method Toilet Toilet # Voids 2 Weight 70.307 kg 70.307 kg Head normocephalic Neck supple Lungs clear to auscultation bilaterally no wheezing or crackles Heart regular rate and rhythm S1-S2, no rub or gallop Abdomen is soft and tender to upper abdomen palpation Extremities no edema Neuro alert and orientated to 3 Results CBC & Chem 7: 03/21/18 08:32 03/21/18 08:32 Labs: Abnormal Lab Results - Last 24 Hours (Table) 03/20/18 03/20/18 03/20/18 Range/Units 17:57 17:57 19:14 WBC 16.6 H (3.8-10.6) k/uL RBC (3.80-5.40) m/uL Neutrophils # 15.5 H (1.3-7.7) k/uL Lymphocytes # 0.2 L (1.0-4.8) k/uL Basophils # 0.3 H (0-0.2) k/uL Glucose 102 H (74-99) mg/dL Urine Protein Trace H (Negative) Urine Ketones 1+ H (Negative) Urine Blood Moderate H (Negative) Urine RBC 12 H (0-5) /hpf Ur Squamous Epith Cells 5 H (0-4) /hpf Urine Mucus Occasional H (None) /hpf 03/21/18 03/21/18 Range/Units 08:32 08:32 WBC (3.8-10.6) k/uL RBC 3.78 L (3.80-5.40) m/uL Neutrophils # 8.8 H (1.3-7.7) k/uL Lymphocytes # 0.3 L (1.0-4.8) k/uL Basophils # (0-0.2) k/uL Glucose 155 H (74-99) mg/dL Urine Protein (Negative) Urine Ketones (Negative) Urine Blood (Negative) Urine RBC (0-5) /hpf Ur Squamous Epith Cells (0-4) /hpf Urine Mucus (None) /hpf Thrombosis Risk Factor Assmnt - Choose All That Apply Any of the Below Risk Factors Present?: Yes Each Factor Represents 1 point: Obesity (BMI >25) Other Risk Factors: No Other congenital or acquired thrombophilia - If yes, enter type in comment: No Thrombosis Risk Factor Assessment Total Risk Factor Score: 1 Thrombosis Risk Factor Assessment Level: Low Risk Assessment and Plan Assessment: 1. Abdominal pain with nausea, vomiting and diarrhea. Ultrasound of gallbladder completed showing negative right upper quadrant abdominal sonogram. No gallstones or dilated ducts. No free fluid. CT of abdomen and pelvis completed showing multiple loops of distal ileum with wall thickening suggestive of inflammatory bowel disease. No free air. Normal appendix. Amylase and lipase within normal limits. GI services have been consulted. Stool for C. diff has been ordered. Patient also started on IV Solu-Medrol per ER. 2. History of fibromyalgia. 3. History of MCAD 4. History of anxiety and PTSD
--- NOTE | 2018-03-21 11:12 | P.CONS ---
History of Present Illness - Reason for Consult Consult date: 03/21/18 Inflammatory bowel disease Requesting physician: David Fuentes - Chief Complaint Abdominal pain - History of Present Illness 37-year-old female past medical history MCAT/inflammatory disease maintained on twice daily Pepcid and Zyrtec, fibromyalgia, anxiety, PTSD, admitted with upper abdominal pain with GERD type symptoms 1 month. Sip of coffee yesterday exacerbated her symptoms. Denies fever chills. Ultrasound abdomen negative. No gallstones or dilated ducts. CT abdomen and pelvis with oral and IV contrast multiple loops of distal ileum with wall thickening suggestive of IBD. No bowel obstruction. White count 16.6. Was started on IV steroids from the ER. Hemoglobin 13.8. LFTs amylase lipase within normal limits. Lactic acid 1.3. HCG not detected. No changes in medications. No aspirin and NSAIDs or alcohol. No sick contacts. No history of inflammatory bowel disease. She's had 2 colonoscopies in the past and most recent colonoscopy April [address] Farnsworth for rectal bleeding with findings of internal and external hemorrhoids. No recent EGD. Review of Systems Constitutional: Denies fever, chills, sweats, weight gain, or loss. HEENT: Negative for migraines, blurred vision or loss, earaches, drainage, tinnitus, oral mucosal lesions, dysphagia, or odynophagia. CARDIAC: Negative for chest pain, arrhythmias, or palpitation. RESPIRATORY: Negative for shortness of breath, hemoptysis, cough, or sputum production. GI: See HPI for pertinent findings. : Negative for hematuria, urgency, frequency, polyuria, or dysuria. GYNc: Denies possibility of . Negative vaginal discharge. MUSCULOSKELETAL: Negative for muscle aches, swelling, arthritis, and arthralgias. NEUROLOGIC: Negative for stroke or TIA. ENDOCRINE: Negative for thyroid problems. SKIN: Negative for rash or itching. PSYCHIATRIC: Negative history for depression and anxiety Past Medical History Past Medical History: Fibromyalgia Additional Past Medical History / Comment(s): RSD. MCAD. FIBROCYSTIC TISSUE. EDS History of Any Multi-Drug Resistant Organisms: None Reported Past Surgical History: Adenoidectomy, Breast Surgery, Section, Orthopedic Surgery, Tonsillectomy Additional Past Surgical History / Comment(s): FOOT SURGERY (RIGHT) ,LEFT KNEE SURGERY TIMES 3, RT HIP SX, COLONOSCOPY, nerve blocks in back Past Anesthesia/Blood Transfusion Reactions: Previous Problems w/ Anesthesia Additional Past Anesthesia/Blood Transfusion Reaction / Comm: RESISTANCE TO ANESTHESIA Past Psychological History: Anxiety, PTSD Additional Psychological History / Comment(s): daughter had brain surgery and this caused some slight anxiety Smoking Status: Never smoker Past Alcohol Use History: Occasional Past Drug Use History: None Reported - Past Family History Mother Family Medical History: Cancer, Thyroid Disorder Father Family Medical History: Cancer, Hypertension Medications and Allergies Home Medications Medication Instructions Recorded Confirmed Type Gabapentin [Neurontin] 300 mg PO HS 11/02/14 03/20/18 History Cetirizine HCl [Zyrtec] 5 mg PO HS 05/27/16 03/20/18 History Ranitidine HCl [Zantac] 150 mg PO HS 04/12/17 03/20/18 History diphenhydrAMINE [Benadryl] 50 mg PO HS PRN 04/12/17 03/20/18 History Allergies Allergy/AdvReac Type Severity Reaction Status Date / Time promethazine HCl Allergy TREMORS, Verified 03/20/18 18:14 [From Phenergan] VISION CHANGES shellfish derived [Shrimp] Allergy Anaphylaxis Verified 03/20/18 18:14 Tetanus Vaccines and Toxoid Allergy SWELLING Verified 03/20/18 18:14 [Tetanus Vaccines & Toxoid] AND REDNESS AT INJECTION SITE Sulfa (Sulfonamide AdvReac SEE COMMENT Verified 03/20/18 18:14 Antibiotics) sulfa eye drops Allergy Unknown Uncoded 03/20/18 16:41 Physical Exam Vitals: Vital Signs Temp Pulse Pulse Resp BP BP BP 03/21/18 07:15 98.4 F 99 16 108/71 03/21/18 04:58 108/71 03/21/18 04:00 96 15 03/21/18 00:00 96 15 03/20/18 22:20 96 15 03/20/18 22:16 98.2 F 96 15 125/87 03/20/18 21:52 88 16 122/88 03/20/18 19:18 102 H 18 122/86 03/20/18 16:37 98.3 F 133 H 20 127/83 Pulse Ox 03/21/18 07:15 96 03/21/18 04:58 03/21/18 04:00 03/21/18 00:00 03/20/18 22:20 03/20/18 22:16 100 03/20/18 21:52 100 03/20/18 19:18 100 03/20/18 16:37 99 Intake and Output 03/20/18 03/21/18 03/21/18 22:59 06:59 14:59 Other: Voiding Method Toilet Toilet # Voids 2 Weight 70.307 kg 70.307 kg General appearance: The patient is alert, oriented, in no acute distress. HET: Head is normocephalic and atraumatic. Pupils are equal and reactive. Oropharynx is clear without lesions. Neck: Supple without lymphadenopathy. Trachea midline. Heart: S1 S2. Regular rate and rhythm. Lungs: No crackles or wheezes are heard. Abdomen: Soft, epigastric tenderness, nondistended with bowel sounds. No peritoneal signs. No palpable organomegaly or masses. Extremities: Normal skin color and turgor. No cyanosis, rash, ulceration, clubbing, or edema. Radial and pedal pulses are 2/4 bilaterally. Neurological: No focal deficits. Strength and sensation are grossly intact. Results CBC & Chem 7: 03/21/18 08:32 03/21/18 08:32 Labs: Abnormal Lab Results - Last 24 Hours (Table) 03/20/18 03/20/18 03/20/18 Range/Units 17:57 17:57 19:14 WBC 16.6 H (3.8-10.6) k/uL Neutrophils # 15.5 H (1.3-7.7) k/uL Lymphocytes # 0.2 L (1.0-4.8) k/uL Basophils # 0.3 H (0-0.2) k/uL Glucose 102 H (74-99) mg/dL Urine Protein Trace H (Negative) Urine Ketones 1+ H (Negative) Urine Blood Moderate H (Negative) Urine RBC 12 H (0-5) /hpf Ur Squamous Epith Cells 5 H (0-4) /hpf Urine Mucus Occasional H (None) /hpf CT scan - abdomen: report reviewed (Dr. Shoemaker) US - abdomen: report reviewed (Dr. Shoemaker) Assessment and Plan (1) Intractable abdominal pain Narrative/Plan: 37-year-old female with a history of MCAT inflammatory disease presents with severe epigastric pain nausea vomiting 1 month possible peptic ulcer disease possible gastritis possible esophagitis possible duodenitis. Current Visit: Yes Status: Acute Code(s): R10.9 - UNSPECIFIED ABDOMINAL PAIN SNOMED Code(s): 63134296 Plan: 1. EGD. 2. Protonix 40 mg daily. Continue with Pepcid. The body former has discussed the risks, benefits and alternative therapies for the above-mentioned procedure and for both sedation/analgesia as well as necessary blood product administration, if indicated, as they pertain to this patient. The patient has indicated understanding and acceptance of the risks and procedures discussed. Thank you for this kind referral and the opportunity to participate in the care of your patient. This consultation was discussed with Dr. Shoemaker. The impression and plan of care have been directed as dictated.
[2018-03-21] MEDS ORDERED: PROPOFOL 10 MG/ML 20 ML VIAL IV ONE (14:48)
[2018-03-21] MEDS ORDERED: LIDOCAINE 1% INJ 10MG/ML (20 ML MDV) ONE (14:48)
[2018-03-21] MEDS ORDERED: GLYCOPYRROLATE 0.2 MG/ML 2 ML VIAL ONE (14:48)
[2018-03-21] MEDS ORDERED: IV FLUID CONTINUATION 1,000 ML IV ONE (14:51)
[2018-03-21] MEDS ORDERED: DICYCLOMINE 10 MG CAP PO PRN (15:29)
[2018-03-21] MEDS: LORATADINE 10 MG TAB PO SCH (15:32)
[2018-03-21] MEDS: FAMOTIDINE 20 MG TAB PO SCH (15:32)
--- NOTE | 2018-03-21 15:35 | P.PCN ---
Date of Procedure: 03/21/18 Description of Procedure: BRIEF HISTORY: 37-year-old female past medical history MCAT/inflammatory disease maintained on twice daily Pepcid and Zyrtec, fibromyalgia, anxiety, PTSD, admitted with upper abdominal pain with GERD type symptoms 1 month. Sip of coffee yesterday exacerbated her symptoms. Denies fever chills. Ultrasound abdomen negative. No gallstones or dilated ducts. CT abdomen and pelvis with oral and IV contrast multiple loops of distal ileum with wall thickening suggestive of IBD. No bowel obstruction. White count 16.6. Hemoglobin 13.8. LFTs amylase lipase within normal limits. Lactic acid 1.3. HCG not detected. No changes in medications. No aspirin and NSAIDs or alcohol. No sick contacts. No history of inflammatory bowel disease. She's had 2 colonoscopies in the past and most recent colonoscopy April [address] Farnsworth for rectal bleeding with findings of internal and external hemorrhoids. No recent EGD. PROCEDURE PERFORMED: Esophagogastroduodenoscopy with biopsies. PREOPERATIVE DIAGNOSIS: Epigastric abdominal pain, GERD. ESTIMATED BLOOD LOSS: Minimal. IV sedation per anesthesia. PROCEDURE: After informed consent was obtained, the patient was brought into the endoscopy unit. IV sedation was administered by Anesthesia under continuous monitoring. Initially the Olympus GIF-190 video endoscope was inserted into the mouth. Esophagus intubated without any difficulty. It was gradually advanced into the stomach and duodenum and carefully examined. The bulb and the second part of the duodenum appeared normal. The scope at this time was withdrawn to the stomach, adequately insufflated with air, and upon careful examination, mucosa of the antrum, body, cardia and the fundus appeared grossly normal, with mild scattered erythema in the antrum and body suggestive of gastritis which was biopsied. The scope was then withdrawn into the esophagus. The GE junction was located at 37 cm from the incisors. The esophagus appeared normal. There were no erosions or ulcerations seen and the patient tolerated the procedure well. IMPRESSION: 1. Mild gastritis of the antrum and body, biopsied. 2. pathology to explain patient's abdominal pain. RECOMMENDATIONS: The findings of this examination were discussed with the patient. Okay to resume diet. Await pathology from biopsies. Continue twice daily Prilosec. Will add Bentyl 4 times a day as needed for abdominal pain/dyspepsia.
[2018-03-21] MEDS: GABAPENTIN 300 MG CAP PO SCH (20:06)
[2018-03-21] MEDS ORDERED: FAMOTIDINE 20 MG TAB PO SCH (21:00)
[2018-03-21] MEDS ORDERED: BENZOCAINE/MENTHOL LOZENG 1 EACH LOZENGE MUCOUS MEM PRN (23:03)
[2018-03-22] MEDS: ONDANSETRON 4 MG/2 ML VIAL IVP PRN ×4 (01:55→19:46)
[2018-03-22] MEDS: HYDROmorphone 1 MG/ML 1 ML SYRINGE IVP PRN ×6 (01:55→22:51)
[2018-03-22] MEDS: SODIUM CHLORIDE 0.9% 1,000 ML IV SCH ×2 (05:38→12:55)
[2018-03-22 06:09] LABS: Basophils % (A) 0 %; Eosinophils # (A) 0.1 k/uL (0-0.7); Eosinophils % (A) 1 %; HCT 33.3 % (34.0-46.0); HGB 11.2 gm/dL (11.4-16.0); Lymphocytes # (A) 1.6 k/uL (1.0-4.8); Lymphocytes % (A) 21 %; MCH 32.1 pg (25.0-35.0); MCHC 33.7 g/dL (31.0-37.0); MCV 95.2 fL (80.0-100.0); Mean Platelet Volume 6.7; Monocytes # (A) 0.5 k/uL (0-1.0); Monocytes % (A) 7 %; Neutrophils # (A) 5.4 k/uL (1.3-7.7); Neutrophils % (A) 70 %; Platelet Count 266 k/uL (150-450); RDW 13.8 % (11.5-15.5); WBC 7.7 k/uL (3.8-10.6)
[2018-03-22 06:17] LABS: ALT 16 U/L (9-52); AST 14 U/L (14-36); Albumin 3.5 g/dL (3.5-5.0); Alkaline Phosphatase 52 U/L (38-126); Anion Gap 4 mmol/L; Blood Urea Nitrogen 8 mg/dL (7-17); Calcium 8.7 mg/dL (8.4-10.2); Carbon Dioxide 27 mmol/L (22-30); Chloride 107 mmol/L (98-107); Glucose 103 mg/dL (74-99); Potassium 4.4 mmol/L (3.5-5.1); Sodium 138 mmol/L (137-145); Total Bilirubin 0.2 mg/dL (0.2-1.3); Total Protein 5.9 g/dL (6.3-8.2)
[2018-03-22] MEDS: PANTOPRAZOLE 40 MG/10 ML VIAL IV SCH (07:53)
[2018-03-22] MEDS: CYCLOBENZAPRINE 10 MG TAB PO PRN (10:59)
[2018-03-22 13:37] LABS: Appearance,Urine Clear (Clear); Bacteria,Urine Few /hpf; Bilirubin,Urine Negative (Negative); Blood,Urine Trace (Negative); Color,Urine Light Yellow; Glucose,Urine (UA) Negative (Negative); Ketones,Urine Negative (Negative); Leukocyte Esterase,Urine Moderate (Negative); Mucus,Urine Few /hpf; Nitrite,Urine Positive (Negative); PH, Urine 6.5 (5.0-8.0); Protein,Urine Negative (Negative); RBC,Urine 1 /hpf (0-5); Specific Gravity,Urine 1.007 (1.001-1.035); Squamous Epithelial Cell,Urine <1 /hpf (0-4); Urobilinogen,Urine <2.0 mg/dL (<2.0); WBC,Urine 12 /hpf (0-5)
--- NOTE | 2018-03-22 14:17 | P.GSCN ---
History of Present Illness Consult date: 03/22/18 Reason for Consult: abdominal pain Requesting physician: Mariaa Merino History of present illness: CHIEF COMPLAINT: Abdominal pain HISTORY OF PRESENT ILLNESS: 29-year-old female who presented to the emergency room due to epigastric pain. Patient states she felt a burning sensation after she had a few sips of coffee, but states these symptoms have been present for about a month. She states she wakes up in the morning feeling fine but after she eats or drinks anything the pain becomes intense. She reports this even occurs with water. She does report a few episodes of emesis prior to coming to the hospital. Last BM was on Tuesday. She reports a history of rectal bleeding and underwent colonoscopy with Dr. Farnsworth in 2018 and was diagnosed with hemorrhoids. Patient underwent EGD by Dr. Shoemaker on 03/21/2018 revealing mild gastritis of antrum and body. Biopsies were taken and are currently pending. IMAGIN. Ultrasound of the gallbladder: Negative right upper quadrant abdominal sonogram. also dilated ducts. No free fluid. Common bile duct 0.[address] abdomen and pelvis: Multiple loops of distal ileum with wall thickening suggestive of inflammatory bowel disease. No free air. Normal appendix. PAST MEDICAL HISTORY: See list. PAST SURGICAL HISTORY: See list. MEDICATIONS: See list. ALLERGIES: See list. SOCIAL HISTORY: Denies tobacco use. Reports occasional alcohol use. REVIEW OF ORGAN SYSTEMS: CONSTITUTIONAL: Denies fever or chills. HEENT: No troubles with vision or hearing. ENDOCRINE: No reports of thyroid disorders. CARDIOVASCULAR: Denies chest pain or pressure. RESPIRATORY: No shortness of breath or pneumonia. GASTROINTESTINAL: Reports epigastric pain. Reports episodes of emesis prior to hospitalization. NEURO: No reports of stroke or seizure disorders. PSYCH: No depression or suicidal ideation HEMATOLOGIC: No easy bruising or bleeding LYMPHATIC: The patient denies any lumps and bumps around the neck. GENITOURINARY: Denies any blood in urine or increased urinary frequency. MUSCULOSKELETAL: Denies back pain, stiffness or joint arthritis. SKIN: Denies rash or cellulitis. PHYSICAL EXAM: VITAL SIGNS: Currently stable. GENERAL: Well-developed in no acute distress. HEENT: No sclera icterus. Extraocular movements grossly intact. Moist buccal mucosa. Head is atraumatic, normocephalic. Hears conversational speech. No nasal drainage. NECK: Supple without lymphadenopathy. CHEST: Non-labored respirations and equal bilateral excursions. CARDIOVASCULAR: Regular rate with regular rhythm. Palpable 2+ radial pulses. ABDOMEN: Soft. Nondistended. No peritonitis. Mild epigastric tenderness. MUSCULOSKELETAL: No clubbing, cyanosis or edema. NEUROLOGIC: No focal or lateralizing signs. Cranial nerves II through XII grossly intact. PSYCH: Alert and oriented x 3 SKIN: Well perfused. Good skin turgor. ASSESSMENT: 1. Epigastric pain, s/p EGD revealing gastritis 2. Multiple loops of distal ileum with wall thickening suggestive of inflammatory bowel disease per CT 3. History of rectal bleeding with colonoscopy, 2018, revealing internal and external hemorrhoids PLAN: Continue current diet. Further recommendations to follow pending evaluation by Dr. Farnsworth Nurse practitioner note has been reviewed by physician. Signing provider agrees with the documented findings, assessment, and plan of care. Past Medical History Past Medical History: Fibromyalgia Additional Past Medical History / Comment(s): RSD. MCAD. FIBROCYSTIC TISSUE. EDS History of Any Multi-Drug Resistant Organisms: None Reported Past Surgical History: Adenoidectomy, Breast Surgery, Section, Orthopedic Surgery, Tonsillectomy Additional Past Surgical History / Comment(s): FOOT SURGERY (RIGHT) ,LEFT KNEE SURGERY TIMES 3, RT HIP SX, COLONOSCOPY, nerve blocks in back Past Anesthesia/Blood Transfusion Reactions: Previous Problems w/ Anesthesia Additional Past Anesthesia/Blood Transfusion Reaction / Comm: RESISTANCE TO ANESTHESIA Past Psychological History: Anxiety, PTSD Additional Psychological History / Comment(s): daughter had brain surgery and this caused some slight anxiety Smoking Status: Never smoker Past Alcohol Use History: Occasional Past Drug Use History: None Reported - Past Family History Mother Family Medical History: Cancer, Thyroid Disorder Father Family Medical History: Cancer, Hypertension Medications and Allergies Home Medications Medication Instructions Recorded Confirmed Type Gabapentin [Neurontin] 300 mg PO HS 11/02/14 03/20/18 History Cetirizine HCl [Zyrtec] 5 mg PO HS 05/27/16 03/20/18 History Ranitidine HCl [Zantac] 150 mg PO HS 04/12/17 03/20/18 History diphenhydrAMINE [Benadryl] 50 mg PO HS PRN 04/12/17 03/20/18 History Allergies Allergy/AdvReac Type Severity Reaction Status Date / Time promethazine HCl Allergy TREMORS, Verified 03/20/18 18:14 [From Phenergan] VISION CHANGES shellfish derived [Shrimp] Allergy Anaphylaxis Verified 03/20/18 18:14 Tetanus Vaccines and Toxoid Allergy SWELLING Verified 03/20/18 18:14 [Tetanus Vaccines & Toxoid] AND REDNESS AT INJECTION SITE Sulfa (Sulfonamide AdvReac SEE COMMENT Verified 03/20/18 18:14 Antibiotics) sulfa eye drops Allergy Unknown Uncoded 03/20/18 16:41 Surgical - Exam Vital Signs Temp Pulse Resp BP Pulse Ox 98.3 F 133 H 20 127/83 99 03/20/18 16:37 03/20/18 16:37 03/20/18 16:37 03/20/18 16:37 03/20/18 16:37 Results - Labs 03/22/18 05:48 03/22/18 05:48 Abnormal Lab Results - Last 24 Hours (Table) 03/22/18 03/22/18 03/22/18 Range/Units 05:48 05:48 13:32 RBC 3.50 L (3.80-5.40) m/uL Hgb 11.2 L (11.4-16.0) gm/dL Hct 33.3 L (34.0-46.0) % Glucose 103 H (74-99) mg/dL Total Protein 5.9 L (6.3-8.2) g/dL Urine Blood Trace H (Negative) Urine Nitrite Positive H (Negative) Ur Leukocyte Esterase Moderate H (Negative) Urine WBC 12 H (0-5) /hpf Urine Bacteria Few H (None) /hpf Urine Mucus Few H (None) /hpf Diabetes panel 03/22/18 Range/Units 05:48 Sodium 138 (137-145) mmol/L Potassium 4.4 (3.5-5.1) mmol/L Chloride 107 (98-107) mmol/L Carbon Dioxide 27 (22-30) mmol/L BUN 8 (7-17) mg/dL Creatinine 0.67 (0.52-1.04) mg/dL Glucose 103 H (74-99) mg/dL Calcium 8.7 (8.4-10.2) mg/dL AST 14 (14-36) U/L ALT 16 (9-52) U/L Alkaline Phosphatase 52 (38-126) U/L Total Protein 5.9 L (6.3-8.2) g/dL Albumin 3.5 (3.5-5.0) g/dL Calcium panel 03/22/18 Range/Units 05:48 Calcium 8.7 (8.4-10.2) mg/dL Albumin 3.5 (3.5-5.0) g/dL Pituitary panel 03/22/18 Range/Units 05:48 Sodium 138 (137-145) mmol/L Potassium 4.4 (3.5-5.1) mmol/L Chloride 107 (98-107) mmol/L Carbon Dioxide 27 (22-30) mmol/L BUN 8 (7-17) mg/dL Creatinine 0.67 (0.52-1.04) mg/dL Glucose 103 H (74-99) mg/dL Calcium 8.7 (8.4-10.2) mg/dL Adrenal panel 03/22/18 Range/Units 05:48 Sodium 138 (137-145) mmol/L Potassium 4.4 (3.5-5.1) mmol/L Chloride 107 (98-107) mmol/L Carbon Dioxide 27 (22-30) mmol/L BUN 8 (7-17) mg/dL Creatinine 0.67 (0.52-1.04) mg/dL Glucose 103 H (74-99) mg/dL Calcium 8.7 (8.4-10.2) mg/dL Total Bilirubin 0.2 (0.2-1.3) mg/dL AST 14 (14-36) U/L ALT 16 (9-52) U/L Alkaline Phosphatase 52 (38-126) U/L Total Protein 5.9 L (6.3-8.2) g/dL Albumin 3.5 (3.5-5.0) g/dL
--- NOTE | 2018-03-22 14:31 | P.PN ---
Subjective Progress Note Date: 03/22/18 This is a 37-year-old female patient of Dr. Rico. Patient presented to the emergency room with complaint of right upper abdominal pain. Patient reports that she's been having intermittent abdominal discomfort for the past couple months. Patient states yesterday she had 3 sips of coffee and then experienced severe upper abdominal pain with vomiting and diarrhea. Patient has past medical history of fibromyalgia, MCAD, anxiety and PTSD. Gallbladder ultrasound completed showing negative right upper quadrant abdominal sonogram. No gallstones or dilated ducts. No free fluid. Abdominal pelvic CT completed showing multiple loops of distal ileum or pleural thickening suggestive of inflammatory bowel disease. No free air. Normal appendix. Normal appendix. Amylase and lipase within normal limits. Initial white blood cell 16.6. Patient did receive some fluids. Repeat WBC 9.2. C. diff stool sample has been ordered. GI services have been consulted. Patient remains afebrile. At this time patient denies chest pain or shortness of breath. Patient is complaining of some abdominal discomfort to palpation in with movement. Patient denies nausea or vomiting at this time. Patient denies any urinary burning or frequency. On 03/22/2018 patient is alert and oriented. Patient is still complaining of severe abdominal pain. Discussed case with GI services recommending surgical consult with Dr. Farnsworth. EGD completed yesterday. At this time patient denies chest pain or shortness breath. Patient is reporting occasional nausea with abdominal pain. Patient denies diarrhea. Patient denies any urinary burning or frequency. Surgical consult has been placed Objective - Vital Signs Vital signs: Vital Signs Temp 98.4 F 03/22/18 07:25 Pulse 92 03/22/18 07:25 Resp 16 03/22/18 11:44 BP 92/63 03/22/18 07:25 Pulse Ox 96 03/22/18 07:25 Intake & Output 03/21/18 03/22/18 03/22/18 18:59 06:59 18:59 Intake Total 600 Balance 600 Intake: IV 400 Oral 200 Other: Voiding Method Toilet Toilet Toilet # Voids 3 - Exam Head normocephalic Neck supple Lungs clear to auscultation bilaterally no wheezing or crackles Heart regular rate and rhythm S1-S2, no rub or gallop Abdomen upper abdominal tenderness Extremities no edema Neuro alert and orientated to 3 - Labs CBC & Chem 7: 03/22/18 05:48 03/22/18 05:48 Labs: Abnormal Lab Results - Last 24 Hours (Table) 03/22/18 03/22/18 03/22/18 Range/Units 05:48 05:48 13:32 RBC 3.50 L (3.80-5.40) m/uL Hgb 11.2 L (11.4-16.0) gm/dL Hct 33.3 L (34.0-46.0) % Glucose 103 H (74-99) mg/dL Total Protein 5.9 L (6.3-8.2) g/dL Urine Blood Trace H (Negative) Urine Nitrite Positive H (Negative) Ur Leukocyte Esterase Moderate H (Negative) Urine WBC 12 H (0-5) /hpf Urine Bacteria Few H (None) /hpf Urine Mucus Few H (None) /hpf Assessment and Plan Assessment: 1. Abdominal pain with nausea, vomiting and diarrhea. Ultrasound of gallbladder completed showing negative right upper quadrant abdominal sonogram. No gallstones or dilated ducts. No free fluid. CT of abdomen and pelvis completed showing multiple loops of distal ileum with wall thickening suggestive of inflammatory bowel disease. No free air. Normal appendix. Amylase and lipase within normal limits. GI services have been consulted. Stool for C. diff has been ordered. IV site Medrol has been discontinued per GI services. EGD completed showing mild gastritis of the antrum and body biopsies obtained. At this time are running twice day Prilosec. Bentyl 4 times a day as needed has been added per GI services. Surgical services have been consulted for ongoing abdominal pain 2. History of fibromyalgia. 3. History of MCAD 4. History of anxiety and PTSD Repeat urinary analysis has been ordered DVT prophylaxis SCDs awaiting surgical recommendation. GI prophylaxis Protonix I performed an examination of the patient and discussed their management with the Nurse Practitioner. I have reviewed the Nurse Practitioner's notes and agree with the documented findings and plan of care
--- NOTE | 2018-03-22 19:41 | NM ---
EXAMINATION TYPE: NM hepatobiliary w EF DATE OF EXAM: 03/22/2018 COMPARISON: NONE HISTORY: Abdominal pain TECHNIQUE: After the intravenous administration of 5.4 mCi Tc 99m Mebrofenin hepatobiliary scintigrap hy is performed. Immediate images post injection. FINDINGS: There is satisfactory initial accumulation of tracer by the liver. The gallbladder is visualized wit hin 34 minutes. The small bowel activity is noted within 10 minutes. At one hour 8 ounces of oral e nsure plus is given to mimic CCK and gallbladder ejection fraction is calculated at 65 %, in the norm al range. Therefore there is no scintigraphic evidence of cystic or common bile duct obstruction to suggest acute cholecystitis or gallbladder dyskinesia. IMPRESSION: No evidence of cystic duct or common bile duct obstruction. No focal liver defect. Normal gallbladder ejection fraction.
[2018-03-22] MEDS: LORATADINE 10 MG TAB PO SCH (19:47)
[2018-03-22] MEDS: FAMOTIDINE 20 MG TAB PO SCH (19:47)
[2018-03-22] MEDS: GABAPENTIN 300 MG CAP PO SCH (19:47)
[2018-03-22] MEDS ORDERED: DOCUSATE 100 MG CAP PO PRN (21:47)
[2018-03-23] MEDS: SODIUM CHLORIDE 0.9% 1,000 ML IV SCH ×2 (00:05→17:46)
[2018-03-23] MEDS: HYDROmorphone 1 MG/ML 1 ML SYRINGE IVP PRN ×5 (01:51→15:58)
[2018-03-23] MEDS: ONDANSETRON 4 MG/2 ML VIAL IVP PRN (04:46)
[2018-03-23 07:07] LABS: Basophils % (A) 0 %; Eosinophils # (A) 0.1 k/uL (0-0.7); Eosinophils % (A) 2 %; HCT 32.3 % (34.0-46.0); HGB 10.2 gm/dL (11.4-16.0); Lymphocytes % (A) 26 %; MCH 30.9 pg (25.0-35.0); MCHC 31.6 g/dL (31.0-37.0); MCV 97.7 fL (80.0-100.0); Mean Platelet Volume 6.2; Monocytes # (A) 0.4 k/uL (0-1.0); Monocytes % (A) 6 %; Neutrophils # (A) 5.2 k/uL (1.3-7.7); Neutrophils % (A) 66 %; Platelet Count 220 k/uL (150-450); RDW 13.6 % (11.5-15.5); WBC 7.9 k/uL (3.8-10.6)
[2018-03-23 07:19] LABS: ALT 44 U/L (9-52); AST 38 U/L (14-36); Albumin 2.9 g/dL (3.5-5.0); Alkaline Phosphatase 70 U/L (38-126); Anion Gap 3 mmol/L; Blood Urea Nitrogen 8 mg/dL (7-17); Calcium 7.9 mg/dL (8.4-10.2); Carbon Dioxide 26 mmol/L (22-30); Chloride 110 mmol/L (98-107); Glucose 90 mg/dL (74-99); Potassium 3.8 mmol/L (3.5-5.1); Sodium 139 mmol/L (137-145); Total Bilirubin 0.1 mg/dL (0.2-1.3); Total Protein 5.1 g/dL (6.3-8.2)
[2018-03-23] MEDS: PANTOPRAZOLE 40 MG/10 ML VIAL IV SCH (08:13)
[2018-03-23] MEDS: CYCLOBENZAPRINE 10 MG TAB PO PRN (08:16)
[2018-03-23] MEDS ORDERED: diphenhydrAMINE 25 MG CAP PO STA (11:11)
--- NOTE | 2018-03-23 13:22 | P.PN ---
Subjective Progress Note Date: 03/23/18 CHIEF COMPLAINT: Abdominal pain HISTORY OF PRESENT ILLNESS: Patient continues to complain of epigastric pain. She also complains of swelling today. HIDA scan performed yesterday was unremarkable. PHYSICAL EXAM: VITAL SIGNS: Currently stable. GENERAL: Well-developed in no acute distress. HEENT: No sclera icterus. Extraocular movements grossly intact. Moist buccal mucosa. Head is atraumatic, normocephalic. Hears conversational speech. No nasal drainage. NECK: Supple without lymphadenopathy. CHEST: Non-labored respirations and equal bilateral excursions. CARDIOVASCULAR: Regular rate with regular rhythm. Palpable 2+ radial pulses. ABDOMEN: Soft. Nondistended. No peritonitis. Mild epigastric tenderness. MUSCULOSKELETAL: No clubbing, cyanosis or edema. NEUROLOGIC: No focal or lateralizing signs. Cranial nerves II through XII grossly intact. PSYCH: Alert and oriented x 3 SKIN: Well perfused. Good skin turgor. ASSESSMENT: 1. Epigastric pain, s/p EGD revealing gastritis 2. Multiple loops of distal ileum with wall thickening suggestive of inflammatory bowel disease per CT 3. History of rectal bleeding with colonoscopy, 2018, revealing internal and external hemorrhoids PLAN: Dr. Farnsworth spoke with the patient at the bedside. She does not require surgical intervention. She may be discharged home from a surgical standpoint. Further management per Dr. Fuentes. Nurse practitioner note has been reviewed by physician. Signing provider agrees with the documented findings, assessment, and plan of care. Objective - Vital Signs Vital signs: Vital Signs Temp 98.3 F 03/23/18 12:00 Pulse 97 03/23/18 12:00 Resp 16 03/23/18 12:00 BP 114/79 03/23/18 12:00 Pulse Ox 94 L 03/23/18 12:00 Intake & Output 03/22/18 03/23/18 03/23/18 18:59 06:59 18:59 Other: Voiding Method Toilet Toilet Toilet # Voids 3 1 - Labs CBC & Chem 7: 03/23/18 06:46 03/23/18 06:46 Labs: Abnormal Lab Results - Last 24 Hours (Table) 03/22/18 03/23/18 03/23/18 Range/Units 13:32 06:46 06:46 RBC 3.30 L (3.80-5.40) m/uL Hgb 10.2 L (11.4-16.0) gm/dL Hct 32.3 L (34.0-46.0) % Chloride 110 H (98-107) mmol/L Calcium 7.9 L (8.4-10.2) mg/dL Total Bilirubin 0.1 L (0.2-1.3) mg/dL AST 38 H (14-36) U/L Total Protein 5.1 L (6.3-8.2) g/dL Albumin 2.9 L (3.5-5.0) g/dL Urine Blood Trace H (Negative) Urine Nitrite Positive H (Negative) Ur Leukocyte Esterase Moderate H (Negative) Urine WBC 12 H (0-5) /hpf Urine Bacteria Few H (None) /hpf Urine Mucus Few H (None) /hpf Microbiology - Last 24 Hours (Table) 03/22/18 13:32 Urine Culture - Preliminary Urine,Voided
--- NOTE | 2018-03-23 15:14 | P.PN ---
Subjective Progress Note Date: 03/23/18 This is a 37-year-old female patient of Dr. Rico. Patient presented to the emergency room with complaint of right upper abdominal pain. Patient reports that she's been having intermittent abdominal discomfort for the past couple months. Patient states yesterday she had 3 sips of coffee and then experienced severe upper abdominal pain with vomiting and diarrhea. Patient has past medical history of fibromyalgia, MCAD, anxiety and PTSD. Gallbladder ultrasound completed showing negative right upper quadrant abdominal sonogram. No gallstones or dilated ducts. No free fluid. Abdominal pelvic CT completed showing multiple loops of distal ileum or pleural thickening suggestive of inflammatory bowel disease. No free air. Normal appendix. Normal appendix. Amylase and lipase within normal limits. Initial white blood cell 16.6. Patient did receive some fluids. Repeat WBC 9.2. C. diff stool sample has been ordered. GI services have been consulted. Patient remains afebrile. At this time patient denies chest pain or shortness of breath. Patient is complaining of some abdominal discomfort to palpation in with movement. Patient denies nausea or vomiting at this time. Patient denies any urinary burning or frequency. On 03/22/2018 patient is alert and oriented. Patient is still complaining of severe abdominal pain. Discussed case with GI services recommending surgical consult with Dr. Farnsworth. EGD completed yesterday. At this time patient denies chest pain or shortness breath. Patient is reporting occasional nausea with abdominal pain. Patient denies diarrhea. Patient denies any urinary burning or frequency. Surgical consult has been placed On 03/23/2018 patient is alert and oriented 3. Patient was evaluated by surgical services. HIDA scan completed no acute findings. GI and surgical services have signed off. Today patient is complaining of a headache with increased swelling to hands and face. She was given Benadryl. Patient also reports she has having occasional nausea still. in to assess patient. Patient denies chest pain or shortness breath. Patient denies any urinary burning or frequency. Objective - Vital Signs Vital signs: Vital Signs Temp 98.3 F 03/23/18 12:00 Pulse 97 03/23/18 12:00 Resp 16 03/23/18 12:00 BP 114/79 03/23/18 12:00 Pulse Ox 94 L 03/23/18 12:00 Intake & Output 03/22/18 03/23/18 03/23/18 18:59 06:59 18:59 Other: Voiding Method Toilet Toilet Toilet # Voids 3 1 - Exam Head normocephalic Neck supple Lungs clear to auscultation bilaterally no wheezing or crackles Heart regular rate and rhythm S1-S2, no rub or gallop Abdomen upper abdominal tenderness Extremities no edema Neuro alert and orientated to 3 - Labs CBC & Chem 7: 03/23/18 06:46 03/23/18 06:46 Labs: Abnormal Lab Results - Last 24 Hours (Table) 03/23/18 03/23/18 Range/Units 06:46 06:46 RBC 3.30 L (3.80-5.40) m/uL Hgb 10.2 L (11.4-16.0) gm/dL Hct 32.3 L (34.0-46.0) % Chloride 110 H (98-107) mmol/L Calcium 7.9 L (8.4-10.2) mg/dL Total Bilirubin 0.1 L (0.2-1.3) mg/dL AST 38 H (14-36) U/L Total Protein 5.1 L (6.3-8.2) g/dL Albumin 2.9 L (3.5-5.0) g/dL Microbiology - Last 24 Hours (Table) 03/22/18 13:32 Urine Culture - Preliminary Urine,Voided Assessment and Plan Assessment: 1. Abdominal pain with nausea, vomiting and diarrhea. Ultrasound of gallbladder completed showing negative right upper quadrant abdominal sonogram. No gallstones or dilated ducts. No free fluid. CT of abdomen and pelvis completed showing multiple loops of distal ileum with wall thickening suggestive of inflammatory bowel disease. No free air. Normal appendix. Amylase and lipase within normal limits. GI services have been consulted. Stool for C. diff has been ordered. IV site Medrol has been discontinued per GI services. EGD completed showing mild gastritis of the antrum and body biopsies obtained. At this time are running twice day Prilosec. Bentyl 4 times a day as needed has been added per GI services. Surgical services ordered HIDA scan. HIDA scan showing no evidence of cystic duct or common bile duct obstruction. No focal level defect. Normal calculated ejection fraction. Surgical and GI services have cleared patient. 2. History of fibromyalgia. 3. History of MCAD 4. History of anxiety and PTSD 5. Migraine headache. Patient was be started on IV steroids. Repeat urinary analysis has been ordered DVT prophylaxis SCDs awaiting surgical recommendation. GI prophylaxis Protonix I performed an examination of the patient and discussed their management with the Nurse Practitioner. I have reviewed the Nurse Practitioner's notes and agree with the documented findings and plan of care
[2018-03-23] MEDS: methylPREDNISolone SOD SUCCI 40 MG/ML 1 ML VIAL IV SCH ×2 (16:53→23:19)
[2018-03-23] MEDS: METOCLOPRAMIDE 5 MG/ML 2 ML VIAL IVP SCH ×2 (17:51→23:19)
[2018-03-23] MEDS: MORPHINE SULFATE 2 MG/ML SYRINGE IVP PRN ×2 (17:51→23:19)
[2018-03-23] MEDS: GABAPENTIN 300 MG CAP PO SCH (20:38)
[2018-03-23] MEDS: LORATADINE 10 MG TAB PO SCH (20:38)
[2018-03-23] MEDS: CIPROFLOXACIN HCL 250 MG TAB PO SCH (20:38)
[2018-03-23] MEDS: FAMOTIDINE 20 MG TAB PO SCH (20:39)
[2018-03-24 01:39] VITALS: RESP 18
[2018-03-24] MEDS: METOCLOPRAMIDE 5 MG/ML 2 ML VIAL IVP SCH ×2 (05:23→11:52)
[2018-03-24] MEDS: MORPHINE SULFATE 2 MG/ML SYRINGE IVP PRN (05:24)
[2018-03-24 06:32] VITALS: BP 124/81; PULSE 66; TEMP 97.7
[2018-03-24] MEDS: CIPROFLOXACIN HCL 250 MG TAB PO SCH (08:49)
[2018-03-24] MEDS: methylPREDNISolone SOD SUCCI 40 MG/ML 1 ML VIAL IV SCH (08:49)
[2018-03-24 09:07] LABS: Basophils % (A) 0 %; Eosinophils % (A) 0 %; HCT 35.5 % (34.0-46.0); HGB 11.7 gm/dL (11.4-16.0); Lymphocytes # (A) 0.8 k/uL (1.0-4.8); Lymphocytes % (A) 9 %; MCH 31.2 pg (25.0-35.0); MCV 94.6 fL (80.0-100.0); Mean Platelet Volume 7.2; Monocytes # (A) 0.2 k/uL (0-1.0); Monocytes % (A) 3 %; Neutrophils # (A) 7.2 k/uL (1.3-7.7); Neutrophils % (A) 87 %; Platelet Count 300 k/uL (150-450); RBC 3.75 m/uL (3.80-5.40); RDW 13.2 % (11.5-15.5); WBC 8.2 k/uL (3.8-10.6)
[2018-03-24 09:27] LABS: ALT 38 U/L (9-52); AST 44 U/L (14-36); Alkaline Phosphatase 96 U/L (38-126); Anion Gap 11 mmol/L; Blood Urea Nitrogen 9 mg/dL (7-17); Calcium 9.4 mg/dL (8.4-10.2); Carbon Dioxide 24 mmol/L (22-30); Chloride 104 mmol/L (98-107); Glucose 153 mg/dL (74-99); Potassium 4.1 mmol/L (3.5-5.1); Sodium 139 mmol/L (137-145); Total Bilirubin 0.3 mg/dL (0.2-1.3); Total Protein 6.7 g/dL (6.3-8.2)
[2018-03-24] MEDS ORDERED: MORPHINE ORAL SOLN 10 MG/5 ML CUP PO PRN (10:24)
--- NOTE | 2018-03-24 12:58 | P.DS ---
Providers Date of admission: 03/23/18 07:57 Expected date of discharge: 03/24/18 Attending physician: David Fuentes Consults: 03/20/18 21:00 Consult Physician Stat Consulting Provider: Momo Jeffries Consult Reason/Comments: IBD Do you want consulting provider notified?: Yes 03/22/18 10:46 Consult Physician Routine Consulting Provider: Osiel Farnsworth Consult Reason/Comments: abdominal pain, previous patient Do you want consulting provider notified?: Yes Primary care physician: Sindi Rico [facility] Course: Discharge diagnosis 1. Abdominal pain with nausea, vomiting and diarrhea. Ultrasound of gallbladder completed showing negative right upper quadrant abdominal sonogram. No gallstones or dilated ducts. No free fluid. CT of abdomen and pelvis completed showing multiple loops of distal ileum with wall thickening suggestive of inflammatory bowel disease. No free air. Normal appendix. Amylase and lipase within normal limits. GI services have been consulted. Stool for C. diff has been ordered. IV site Medrol has been discontinued per GI services. EGD completed showing mild gastritis of the antrum and body biopsies obtained. At this time are running twice day Prilosec. Bentyl 4 times a day as needed has been added per GI services. Surgical services ordered HIDA scan. HIDA scan showing no evidence of cystic duct or common bile duct obstruction. No focal level defect. Normal calculated ejection fraction. Surgical and GI services have cleared patient. Per GI recommendation patient will be DC'd on Bentyl, Flexeril and Zofran. Patient advised to avoid Zofran until completion of antibiotic 2. History of fibromyalgia. 3. History of MCAD. Patient advised to establish with a specialty doctor who can follow with patient's condition and multiple issues. 4. History of anxiety and PTSD 5. Migraine headache. Patient was be started on IV steroids. She will be DC' d on Medrol Dosepak 6. Urinary tract infection. Patient will be DC'd on Cipro antibiotic for 3 more days. Patient advised that with Cipro antibiotic she should avoid using Zofran. Hospital course This is a 37-year-old female patient of Dr. Rico. Patient presented to the emergency room with complaint of right upper abdominal pain. Patient reports that she's been having intermittent abdominal discomfort for the past couple months. Patient states yesterday she had 3 sips of coffee and then experienced severe upper abdominal pain with vomiting and diarrhea. Patient has past medical history of fibromyalgia, MCAD, anxiety and PTSD. Gallbladder ultrasound completed showing negative right upper quadrant abdominal sonogram. No gallstones or dilated ducts. No free fluid. Abdominal pelvic CT completed showing multiple loops of distal ileum or pleural thickening suggestive of inflammatory bowel disease. No free air. Normal appendix. Normal appendix. Amylase and lipase within normal limits. Initial white blood cell 16.6. Patient did receive some fluids. Repeat WBC 9.2. C. diff stool sample has been ordered. GI services have been consulted. Patient remains afebrile. At this time patient denies chest pain or shortness of breath. Patient is complaining of some abdominal discomfort to palpation in with movement. Patient denies nausea or vomiting at this time. Patient denies any urinary burning or frequency. On 03/22/2018 patient is alert and oriented. Patient is still complaining of severe abdominal pain. Discussed case with GI services recommending surgical consult with Dr. Farnsworth. EGD completed yesterday. At this time patient denies chest pain or shortness breath. Patient is reporting occasional nausea with abdominal pain. Patient denies diarrhea. Patient denies any urinary burning or frequency. Surgical consult has been placed On 03/23/2018 patient is alert and oriented 3. Patient was evaluated by surgical services. HIDA scan completed no acute findings. GI and surgical services have signed off. Today patient is complaining of a headache with increased swelling to hands and face. She was given Benadryl. On 03/24/2018 patient is alert and oriented 3. Patient states that she is ready to be DC'd home. Patient was given Solu-Medrol yesterday for headache. Will DC patient on Medrol Dosepak. Patient also positive for UTI. Will DC patient on Cipro antibiotic for 3 more days. Patient also will be DC'd on Flexeril, Bentyl and Zofran per GI recommendation due to possible muscle spasms in stomach. Patient highly advised to follow-up with her PCP and establish with a specialty provider for her chronic conditions and multiple health issues. At this time patient denies chest pain or shortness breath. Patient denies nausea vomiting or diarrhea. Patient denies any urinary burning or frequency. I performed an examination of the patient and discussed their management with the Nurse Practitioner. I have reviewed the Nurse Practitioner's notes and agree with the documented findings and plan of care Patient Condition at Discharge: Stable Plan - Discharge Summary Discharge Rx Participant: Yes New Discharge Prescriptions: New Ciprofloxacin HCl [Cipro] 250 mg PO BID 3 Days #6 tab Cyclobenzaprine [Flexeril] 10 mg PO TID PRN 30 Days #90 tab PRN Reason: Muscle Spasm Dicyclomine [Bentyl] 10 mg PO QID PRN 14 Days #56 cap PRN Reason: Dyspepsia predniSONE 10 mg PO DIRECTED #30 tab Ondansetron [Zofran] 4 mg PO Q12HR PRN #60 tab PRN Reason: Nausea Continue Gabapentin [Neurontin] 300 mg PO HS Cetirizine HCl [Zyrtec] 5 mg PO HS diphenhydrAMINE [Benadryl] 50 mg PO HS PRN PRN Reason: UNISOM FOR SLEEP Ranitidine HCl [Zantac] 150 mg PO HS Discharge Medication List Gabapentin [Neurontin] 300 mg PO HS 11/02/14 [History] Cetirizine HCl [Zyrtec] 5 mg PO HS 05/27/16 [History] Ranitidine HCl [Zantac] 150 mg PO HS 04/12/17 [History] diphenhydrAMINE [Benadryl] 50 mg PO HS PRN 04/12/17 [History] Ciprofloxacin HCl [Cipro] 250 mg PO BID 3 Days #6 tab 03/24/18 [Rx] Cyclobenzaprine [Flexeril] 10 mg PO TID PRN 30 Days #90 tab 03/24/18 [Rx] Dicyclomine [Bentyl] 10 mg PO QID PRN 14 Days #56 cap 03/24/18 [Rx] Ondansetron [Zofran] 4 mg PO Q12HR PRN #60 tab 03/24/18 [Rx] predniSONE 10 mg PO DIRECTED #30 tab 03/24/18 [Rx] Follow up Appointment(s)/Referral(s): Sindi Rico MD [Primary Care Provider] - 1-2 days Activity/Diet/Wound Care/Special Instructions: Activity as tolerated Diet regular Patient denies to hold on Zofran until antibiotic Cipro was completed Discharge Disposition: HOME SELF-CARE
== END 2018-03-24 13:43 | disposition home or self-care (01) | DRG 392 ==
LOC: EC 16:26 → 1SOBS 21:00 → OBSVTOIN 03-23 07:57 → 4MS4W 03-23 17:27
PROVIDERS: ADMIT Internal Medicine; ATTEND Internal Medicine
PROC: 0DB68ZX Excision of Stomach, Via Natural or Artificial Opening Endoscopic, Diagnostic (ICD-10-PCS; principal; 2018-03-21 10:00)
DX: K29.70 Gastritis, unspecified, without bleeding (principal); G90.50 Complex regional pain syndrome I, unspecified; N39.0 Urinary tract infection, site not specified; M79.7 Fibromyalgia; K52.9 Noninfective gastroenteritis and colitis, unspecified; F41.9 Anxiety disorder, unspecified; G43.909 Migraine, unspecified, not intractable, without status migrainosus; F43.10 Post-traumatic stress disorder, unspecified; K21.9 Gastro-esophageal reflux disease without esophagitis; Z88.2 Allergy status to sulfonamides; Z88.7 Allergy status to serum and vaccine; Z88.8 Allergy status to other drugs, medicaments and biological substances; Z91.013 Allergy to seafood; Z82.49 Family history of ischemic heart disease and other diseases of the circulatory system; Z80.9 Family history of malignant neoplasm, unspecified
CPT/HCPCS: 36415; 43239; 74177; 76705; 78226; 80053; 81001; 81025; 82150; 83605; 83690; 85025; 85652; 86140; 87086; 88305; 96361; 96374; 96375; 96376; 99285

== ENCOUNTER 2018-06-30 15:42 | Emergency (ER) | payer OTHER ==
[2018-06-30 15:46] VITALS: BP 136/82; PULSE 99; RESP 20; TEMP 98.2
[2018-06-30] MEDS ORDERED: SODIUM CHLORIDE 0.9% 500 ML 500 ML IV ONE (15:59)
[2018-06-30] MEDS ORDERED: diphenhydrAMINE 50 MG/ML 1 ML VIAL IVP STA (15:59)
[2018-06-30] MEDS ORDERED: FAMOTIDINE 20 MG/2 ML VIAL IV STA (15:59)
[2018-06-30] MEDS ORDERED: methylPREDNISolone SOD SUCCI 125 MG/2 ML VIAL IV STA (15:59)
--- NOTE | 2018-06-30 16:46 | ED ---
Allergic Reaction HPI - General Chief complaint: Allergic Reaction Stated complaint: Allergic reaction Time Seen by Provider: 06/30/18 15:47 Source: patient, family, RN notes reviewed Mode of arrival: ambulatory Limitations: no limitations - History of Present Illness Initial Comments: This a 38-year-old female presents emergency Department with chief complaint of ALLERGIC reaction. Patient states that she has a known ALLERGY to shellfish, shrimp. Patient states that she ate sushi last night. Patient states that she had reaction last night states that she took Benadryl but returned again today. Patient states she feels itchy all over and scratchy throat. She has not taken any Benadryl since this morning. Patient denies any difficulty breathing. Patient does not use an EpiPen for her reactions. - Related Data Home Medications Medication Instructions Recorded Confirmed Gabapentin [Neurontin] 300 mg PO HS 11/02/14 03/20/18 Cetirizine HCl [Zyrtec] 5 mg PO HS 05/27/16 03/20/18 Ranitidine HCl [Zantac] 150 mg PO HS 04/12/17 03/20/18 diphenhydrAMINE [Benadryl] 50 mg PO HS PRN 04/12/17 03/20/18 Previous Rx's Medication Instructions Recorded Ciprofloxacin HCl [Cipro] 250 mg PO BID 3 Days #6 tab 03/24/18 Cyclobenzaprine [Flexeril] 10 mg PO TID PRN 30 Days #90 tab 03/24/18 Dicyclomine [Bentyl] 10 mg PO QID PRN 14 Days #56 cap 03/24/18 Ondansetron [Zofran] 4 mg PO Q12HR PRN #60 tab 03/24/18 methylPREDNISolone Dose Pack 4 mg PO DIRECTED #21 package 03/24/18 [Medrol Dose Pack] predniSONE 50 mg PO DAILY #3 tab 06/30/18 Allergies Allergy/AdvReac Type Severity Reaction Status Date / Time promethazine HCl Allergy TREMORS, Verified 06/30/18 15:46 [From Phenergan] VISION CHANGES shellfish derived [Shrimp] Allergy Anaphylaxis Verified 06/30/18 15:46 Tetanus Vaccines and Toxoid Allergy SWELLING Verified 06/30/18 15:46 [Tetanus Vaccines & Toxoid] AND REDNESS AT INJECTION SITE Sulfa (Sulfonamide AdvReac SEE COMMENT Verified 06/30/18 15:46 Antibiotics) sulfa eye drops Allergy Unknown Uncoded 06/30/18 15:46 Review of Systems ROS Statement: Those systems with pertinent positive or pertinent negative responses have been documented in the HPI. ROS Other: All systems not noted in ROS Statement are negative. Past Medical History Past Medical History: Fibromyalgia Additional Past Medical History / Comment(s): RSD. MCAD. FIBROCYSTIC TISSUE. EDS History of Any Multi-Drug Resistant Organisms: None Reported Past Surgical History: Adenoidectomy, Breast Surgery, Section, Orthopedic Surgery, Tonsillectomy Additional Past Surgical History / Comment(s): FOOT SURGERY (RIGHT) ,LEFT KNEE SURGERY TIMES 3, RT HIP SX, COLONOSCOPY, nerve blocks in back Past Anesthesia/Blood Transfusion Reactions: Previous Problems w/ Anesthesia Additional Past Anesthesia/Blood Transfusion Reaction / Comment(s): RESISTANCE TO ANESTHESIA Past Psychological History: Anxiety, PTSD Smoking Status: Never smoker Past Alcohol Use History: Occasional Past Drug Use History: None Reported - Past Family History Mother Family Medical History: Cancer, Thyroid Disorder Father Family Medical History: Cancer, Hypertension General Exam Limitations: no limitations General appearance: alert, in no apparent distress Head exam: Present: atraumatic, normocephalic, normal inspection Eye exam: Present: normal appearance, PERRL, EOMI. Absent: scleral icterus, conjunctival injection, periorbital swelling ENT exam: Present: normal exam, normal oropharynx, mucous membranes moist, TM's normal bilaterally Neck exam: Present: normal inspection, full ROM. Absent: tenderness, meningismus, lymphadenopathy Respiratory exam: Present: normal lung sounds bilaterally. Absent: respiratory distress, wheezes, rales, rhonchi, stridor Cardiovascular Exam: Present: regular rate, normal rhythm, normal heart sounds. Absent: systolic murmur, diastolic murmur, rubs, gallop, clicks GI/Abdominal exam: Present: soft, normal bowel sounds. Absent: distended, tenderness, guarding, rebound, rigid Neurological exam: Present: alert, oriented X3, CN II-XII intact Skin exam: Present: warm, dry, intact, normal color. Absent: rash Course Vital Signs 06/30/18 15:44 Temperature 98.2 F Pulse Rate 99 Respiratory 20 Rate Blood Pressure 136/82 O2 Sat by Pulse 97 Oximetry - Reevaluation(s) Reevaluation #1: 06/30/18 17:40 Patient reevaluated, patient is asymptomatic and sleeping in the room. Disposition Clinical Impression: Allergic reaction Disposition: HOME SELF-CARE Condition: Stable Instructions (If sedation given, give patient instructions): Food Allergy (ED), General Allergic Reaction (ED) Additional Instructions: Please return to the Emergency Department if symptoms worsen or any other concerns. Prescriptions: predniSONE 50 mg PO DAILY #3 tab Is patient prescribed a controlled substance at d/c from ED?: No Referrals: Sindi Rico MD [Primary Care Provider] - 1-2 days Time of Disposition: 17:41
== END 2018-06-30 17:53 | disposition home or self-care (01) ==
LOC: EC 15:42
DX: T78.1XXA Other adverse food reactions, not elsewhere classified, initial encounter (principal); Z79.899 Other long term (current) drug therapy; Z88.2 Allergy status to sulfonamides; Z91.013 Allergy to seafood; Z88.7 Allergy status to serum and vaccine; Z88.8 Allergy status to other drugs, medicaments and biological substances
CPT/HCPCS: 99283; 96374; 96375 ×2; J1200; J2930

== ENCOUNTER 2019-06-25 22:04 | Emergency (ER) | payer OTHER ==
[2019-06-25 22:11] VITALS: TEMP 98.8
[2019-06-25] MEDS ORDERED: KETOROLAC 30 MG/ML 1 ML VIAL IVP STA (22:57)
[2019-06-25] MEDS ORDERED: diphenhydrAMINE 50 MG/ML 1 ML VIAL IVP STA (22:57)
[2019-06-25] MEDS ORDERED: methylPREDNISolone SOD SUCCI 125 MG/2 ML VIAL IV STA (22:57)
[2019-06-25] MEDS ORDERED: FAMOTIDINE 20 MG/2 ML VIAL IV STA (22:57)
--- NOTE | 2019-06-25 23:56 | ED ---
General Adult HPI - General Chief complaint: Skin/Abscess/Foreign Body Stated complaint: Arm Infection Time Seen by Provider: 06/25/19 22:17 Source: patient, family Mode of arrival: ambulatory Limitations: no limitations - History of Present Illness Initial comments: 39-year-old female patient presents to the emergency department today for evaluation of swelling, redness, and itching to her right wrist. Patient states this developed around 4:00 this morning. Patient states that throughout the day the itching has become worse. States she did have 3 small blisters to the area which has since opened. States that the area is aching and radiating up to her elbow. Patient states just this evening she started to develop some mild shortness of breath and irritation to her throat. States she does have a shrimp ALLERGY and this feels similar. Patient denies any new exposures. She is unsure she was maybe bit by something. She denies any fever or chills. Denies any history of similar symptoms. - Related Data Home Medications Medication Instructions Recorded Confirmed Gabapentin [Neurontin] 300 mg PO HS 11/02/14 03/20/18 Cetirizine HCl [Zyrtec] 5 mg PO HS 05/27/16 03/20/18 Ranitidine HCl [Zantac] 150 mg PO HS 04/12/17 03/20/18 diphenhydrAMINE [Benadryl] 50 mg PO HS PRN 04/12/17 03/20/18 Previous Rx's Medication Instructions Recorded Ciprofloxacin HCl [Cipro] 250 mg PO BID 3 Days #6 tab 03/24/18 Cyclobenzaprine [Flexeril] 10 mg PO TID PRN 30 Days #90 tab 03/24/18 Dicyclomine [Bentyl] 10 mg PO QID PRN 14 Days #56 cap 03/24/18 Ondansetron [Zofran] 4 mg PO Q12HR PRN #60 tab 03/24/18 methylPREDNISolone Dose Pack 4 mg PO DIRECTED #21 package 03/24/18 [Medrol Dose Pack] predniSONE 50 mg PO DAILY #3 tab 06/30/18 Famotidine [Pepcid] 20 mg PO DAILY #3 tablet 06/26/19 predniSONE 50 mg PO DAILY #3 tab 06/26/19 Allergies Allergy/AdvReac Type Severity Reaction Status Date / Time promethazine HCl Allergy TREMORS, Verified 06/30/18 15:46 [From Phenergan] VISION CHANGES shellfish derived [Shrimp] Allergy Anaphylaxis Verified 06/30/18 15:46 Tetanus Vaccines and Toxoid Allergy SWELLING Verified 06/30/18 15:46 [Tetanus Vaccines & Toxoid] AND REDNESS AT INJECTION SITE Sulfa (Sulfonamide AdvReac SEE COMMENT Verified 06/30/18 15:46 Antibiotics) sulfa eye drops Allergy Unknown Uncoded 06/30/18 15:46 Review of Systems ROS Statement: Those systems with pertinent positive or pertinent negative responses have been documented in the HPI. ROS Other: All systems not noted in ROS Statement are negative. Past Medical History Past Medical History: Fibromyalgia Additional Past Medical History / Comment(s): RSD. MCAD. FIBROCYSTIC TISSUE. EDS History of Any Multi-Drug Resistant Organisms: None Reported Past Surgical History: Adenoidectomy, Breast Surgery, Section, Orthopedic Surgery, Tonsillectomy Additional Past Surgical History / Comment(s): FOOT SURGERY (RIGHT) ,LEFT KNEE SURGERY TIMES 3, RT HIP SX, COLONOSCOPY, nerve blocks in back Past Anesthesia/Blood Transfusion Reactions: Previous Problems w/ Anesthesia Additional Past Anesthesia/Blood Transfusion Reaction / Comment(s): RESISTANCE TO ANESTHESIA Past Psychological History: Anxiety, PTSD Smoking Status: Never smoker Past Alcohol Use History: Occasional Past Drug Use History: None Reported - Past Family History Mother Family Medical History: Cancer, Thyroid Disorder Father Family Medical History: Cancer, Hypertension General Exam Limitations: no limitations General appearance: alert, in no apparent distress, anxious, other (This is a well-developed, well-nourished adult female patient who is mildly anxious. Vital signs upon presentation are temperature 98.8F, pulse 98, respirations 18, blood pressure 129/84, pulse ox 98% on room air.) ENT exam: Present: normal exam, normal oropharynx, mucous membranes moist Respiratory exam: Present: normal lung sounds bilaterally. Absent: respiratory distress, wheezes, rales, rhonchi, stridor Cardiovascular Exam: Present: regular rate, normal rhythm, normal heart sounds. Absent: systolic murmur, diastolic murmur, rubs, gallop, clicks Extremities exam: Present: full ROM, normal capillary refill, other (There is large patch of erythema to the right volar wrist. There are three small ruptured blisters noted with clear drainage. The patch is raised. Skin is otherwise pink, warm, dry. Cap refills less than 3 seconds. Radial pulses 2+ and equal bilaterally.). Absent: normal inspection, tenderness, pedal edema, joint swelling, calf tenderness Neurological exam: Present: alert, oriented X3, CN II-XII intact Psychiatric exam: Present: normal affect, normal mood Skin exam: Present: warm, dry, intact, normal color. Absent: rash Course Vital Signs 06/25/19 06/25/19 06/26/19 22:08 23:11 00:27 Temperature 98.8 F Pulse Rate 98 88 81 Respiratory 18 18 16 Rate Blood Pressure 129/84 124/88 122/86 O2 Sat by Pulse 98 99 99 Oximetry Medical Decision Making - Medical Decision Making 39-year-old female patient presented to the emergency department today for evaluation of swelling, redness, itching to the right wrist. Patient states there is also painful. Physical examination did reveal a raised patch of erythema with 3 ruptured blisters. No streaking up the arm. No noted enlargement. Symptoms seem consistent with ALLERGIC reaction or possible insect/spider bite. She was also experiencing some throat itching and shortness of breath or we did insert an IV and gave steroids, Pepcid, Benadryl. Patient was monitored. Upon reevaluation symptoms are much improved. There is decreased swelling and redness to the wrist. She'll be discharged with a three- day prescription for Pepcid and prednisone. She is instructed to continue Benadryl as needed. She is instructed to follow-up with her primary care ph ysician for recheck in 1-2 days. Return parameters were discussed in detail. She verbalizes understanding and agrees with this plan. Disposition Clinical Impression: Insect bite, Allergic reaction Disposition: HOME SELF-CARE Condition: Good Instructions (If sedation given, give patient instructions): Insect Bite or Sting (ED), General Allergic Reaction (ED) Additional Instructions: Take medications as directed. You can purchase [id number] hydrocortisone cream to apply topically if he wished. Take Benadryl 25-50 mg every 6 hours as needed. Tylenol or Motrin for pain control. Follow-up with your primary care physician for recheck in 1-2 days. Return to the emergency department immediately for any new, worsening, or concerning symptoms. Prescriptions: Famotidine [Pepcid] 20 mg PO DAILY #3 tablet predniSONE 50 mg PO DAILY #3 tab Is patient prescribed a controlled substance at d/c from ED?: No Referrals: Sindi Rico MD [Primary Care Provider] - 1-2 days Time of Disposition: 00:20
[2019-06-26 00:28] VITALS: BP 122/86; PULSE 81; RESP 16
== END 2019-06-26 00:29 | disposition home or self-care (01) ==
LOC: EC 22:04
DX: T78.40XA Allergy, unspecified, initial encounter (principal); S60.861A Insect bite (nonvenomous) of right wrist, initial encounter; Z79.899 Other long term (current) drug therapy; Z88.2 Allergy status to sulfonamides; Z88.8 Allergy status to other drugs, medicaments and biological substances; Z88.7 Allergy status to serum and vaccine; Z91.013 Allergy to seafood; W57.XXXA Bitten or stung by nonvenomous insect and other nonvenomous arthropods, initial encounter
CPT/HCPCS: 99283; 96374; 96375 ×3; J1200; J2930; J1885

== ENCOUNTER 2021-11-17 09:53 | Emergency (ER) | payer OTHER ==
[2021-11-17 10:15] VITALS: RESP 20
--- NOTE | 2021-11-17 10:56 | CT ---
EXAMINATION TYPE: CT brain wo con DATE OF EXAM: 11/17/2021 COMPARISON: None, PACS downtime HISTORY: Concussion CT DLP: 1107.4 mGycm. Automated Exposure Control for Dose Reduction was Utilized. TECHNIQUE: CT scan of the head is performed without contrast. FINDINGS: There is no acute intracranial hemorrhage, mass effect, or midline shift identified. The ventricles and sulci are within normal limits in size. Singleton-white matter differentiation is maintain ed. Slightly low-lying cerebellar tonsils to level of foramen magnum without greater than 5 mm inferi or extension. The globes are intact and the visualized sinuses are clear. The calvarium is intact. IMPRESSION: No acute intracranial hemorrhage or midline shift is seen.
[2021-11-17] MEDS ORDERED: KETOROLAC 15 MG/ML 1 ML VIAL IM STA (12:27)
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
[2021-11-17 13:04] VITALS: BP 121/82; PULSE 79; TEMP 98.6
== END 2021-11-17 13:18 | disposition home or self-care (01) ==
LOC: EC 09:53
DX: S06.0X0A Concussion without loss of consciousness, initial encounter (principal); S16.1XXA Strain of muscle, fascia and tendon at neck level, initial encounter; Z88.2 Allergy status to sulfonamides; Z88.8 Allergy status to other drugs, medicaments and biological substances; Z91.013 Allergy to seafood; Z88.7 Allergy status to serum and vaccine; W22.8XXA Striking against or struck by other objects, initial encounter
CPT/HCPCS: 72125; 70450; 99284; 96372; J1885

== ENCOUNTER 2021-12-15 06:40 | Emergency (ER) | payer OTHER ==
[2021-12-15] MEDS ORDERED: diphenhydrAMINE 50 MG/ML 1 ML VIAL IVP STA (07:17)
--- NOTE | 2021-12-15 08:22 | ED ---
URI HPI - General Chief Complaint: Upper Respiratory Infection Stated Complaint: covid Time Seen by Provider: 12/15/21 06:54 Source: patient, EMS, RN notes reviewed Mode of arrival: EMS Limitations: no limitations - History of Present Illness Initial Comments: 41-year-old female presents emergency from with chief complaint of COVID-19. Patient states she's taken multiple tests at home which is status positive. Patient states that her has tested positive. Patient states she has cough congestion bodyaches fevers or chills. States that she became lightheaded and struck her head. Patient complains of headache. Patient denies any abdominal pain no other complaints. - Related Data Home Medications Medication Instructions Recorded Confirmed Gabapentin [Neurontin] 300 mg PO HS 11/02/14 03/20/18 Cetirizine HCl [Zyrtec] 5 mg PO HS 05/27/16 03/20/18 Ranitidine HCl [Zantac] 150 mg PO HS 04/12/17 03/20/18 diphenhydrAMINE [Benadryl] 50 mg PO HS PRN 04/12/17 03/20/18 Previous Rx's Medication Instructions Recorded Ciprofloxacin HCl [Cipro] 250 mg PO BID 3 Days #6 tab 03/24/18 Cyclobenzaprine [Flexeril] 10 mg PO TID PRN 30 Days #90 tab 03/24/18 Dicyclomine [Bentyl] 10 mg PO QID PRN 14 Days #56 cap 03/24/18 Ondansetron [Zofran] 4 mg PO Q12HR PRN #60 tab 03/24/18 methylPREDNISolone Dose Pack 4 mg PO DIRECTED #21 package 03/24/18 [Medrol Dose Pack] predniSONE 50 mg PO DAILY #3 tab 06/30/18 Famotidine [Pepcid] 20 mg PO DAILY #3 tablet 06/26/19 predniSONE 50 mg PO DAILY #3 tab 06/26/19 Ketorolac [Toradol] 10 mg PO Q6HR #15 tab 11/17/21 Nirmatrelvir/Ritonavir [Paxlovid See Rx Instructions .ROUTE 12/15/21 2X150 mg-100 mg (Eua)] .COMPLEX #30 tab Allergies Allergy/AdvReac Type Severity Reaction Status Date / Time promethazine HCl Allergy TREMORS, Verified 12/15/21 06:57 [From Phenergan] VISION CHANGES shellfish derived [Shrimp] Allergy Anaphylaxis Verified 12/15/21 06:57 Tetanus Vaccines and Toxoid Allergy SWELLING Verified 12/15/21 06:57 [Tetanus Vaccines & Toxoid] AND REDNESS AT INJECTION SITE Sulfa (Sulfonamide AdvReac SEE COMMENT Verified 12/15/21 06:57 Antibiotics) sulfa eye drops Allergy Unknown Uncoded 12/15/21 06:57 Review of Systems ROS Statement: Those systems with pertinent positive or pertinent negative responses have been documented in the HPI. ROS Other: All systems not noted in ROS Statement are negative. Past Medical History Past Medical History: Fibromyalgia Additional Past Medical History / Comment(s): RSD. MCAD. FIBROCYSTIC TISSUE. EDS History of Any Multi-Drug Resistant Organisms: None Reported Past Surgical History: Adenoidectomy, Breast Surgery, Section, Orthopedic Surgery, Tonsillectomy Additional Past Surgical History / Comment(s): FOOT SURGERY (RIGHT) ,LEFT KNEE SURGERY TIMES 3, RT HIP SX, COLONOSCOPY, nerve blocks in back Past Anesthesia/Blood Transfusion Reactions: Previous Problems w/ Anesthesia Additional Past Anesthesia/Blood Transfusion Reaction / Comment(s): RESISTANCE TO ANESTHESIA Past Psychological History: Anxiety, PTSD Smoking Status: Never smoker Past Alcohol Use History: Occasional Past Drug Use History: None Reported - Past Family History Mother Family Medical History: Cancer, Thyroid Disorder Father Family Medical History: Cancer, Hypertension General Exam Limitations: no limitations General appearance: alert, in no apparent distress Head exam: Present: atraumatic, normocephalic, normal inspection Eye exam: Present: normal appearance, PERRL, EOMI. Absent: scleral icterus, conjunctival injection, periorbital swelling ENT exam: Present: normal exam, normal oropharynx, mucous membranes moist Neck exam: Present: normal inspection, full ROM. Absent: tenderness, meningismus, lymphadenopathy Respiratory exam: Present: normal lung sounds bilaterally. Absent: respiratory distress, wheezes, rales, rhonchi, stridor Cardiovascular Exam: Present: regular rate, normal rhythm, normal heart sounds. Absent: systolic murmur, diastolic murmur, rubs, gallop, clicks Neurological exam: Present: alert, oriented X3 Course Vital Signs 12/15/21 12/15/21 12/15/21 06:54 08:20 08:39 Temperature 98.7 F Pulse Rate 101 H 118 H 129 H Respiratory 22 32 H 30 H Rate Blood Pressure 138/89 147/112 O2 Sat by Pulse 98 98 98 Oximetry 12/15/21 08:57 Temperature Pulse Rate 106 H Respiratory 20 Rate Blood Pressure 135/92 O2 Sat by Pulse 97 Oximetry Medical Decision Making - Medical Decision Making 41-year-old presented for: Positive. Patient will be given paxlovid and, CT was obtained secondary to head injury she fell. CT is negative patient discharged in stable condition. Disposition Clinical Impression: COVID-19, Head contusion Disposition: HOME SELF-CARE Condition: Stable Instructions (If sedation given, give patient instructions): COVID-19 (Coronavirus Disease 2019) (ED) Additional Instructions: Please return to the Emergency Department if symptoms worsen or any other concerns. Prescriptions: Nirmatrelvir/Ritonavir [Paxlovid 2X150 mg-100 mg (Eua)] See Rx Instructions .ROUTE .COMPLEX #30 tab Is patient prescribed a controlled substance at d/c from ED?: No Referrals: Mary Jo Heller DO [Primary Care Provider] - 1-2 days Time of Disposition: 10:44
[2021-12-15] MEDS ORDERED: LORazepam 2 MG/ML INJ IV STA (08:27)
--- NOTE | 2021-12-15 09:56 | XR ---
EXAMINATION TYPE: XR chest 2V DATE OF EXAM: 12/15/2021 COMPARISON: 08/16/2012 TECHNIQUE: PA and lateral views submitted. HISTORY: Cough FINDINGS: The lungs are clear and there is no pneumothorax, pleural effusion, or focal pneumonia. Heart size normal. Coarsened interstitium. IMPRESSION: 1. Correlate for mild bronchitis or interstitial pneumonitis
--- NOTE | 2021-12-15 10:37 | CT ---
EXAMINATION TYPE: CT brain wo con DATE OF EXAM: 12/15/2021 COMPARISON: 11/17/2021 HISTORY: 41-year-old female pain, covid positive TECHNIQUE: Examination was done in axial plane without intravenous contrast. Coronal and sagittal r econstructions performed. CT DLP: 1099.4 mGycm Automated exposure control for dose reduction was used. FINDINGS: There is no evidence of acute intracranial hemorrhage, acute ischemic changes, mass, mass-effect, or extra-axial fluid collection. There is no effacement of cerebral sulci or basal subarachnoid cister ns. There is no hydrocephalus. There is no midline shift. Singleton-white matter distinction is preserv ed. Minimal benign basal calcifications. Partially empty sella. Scattered mild mucosal thickening ethmoid air cells. Mastoid air cells are well pneumatized. Visualiz ed orbits and globes are intact. IMPRESSION: No acute intracranial abnormality seen.
[2021-12-15] MEDS ORDERED: KETOROLAC 15 MG/ML 1 ML VIAL IVP STA (10:42)
[2021-12-15 11:17] VITALS: BP 138/105; PULSE 104; RESP 18; TEMP 98.8
== END 2021-12-15 11:20 | disposition home or self-care (01) ==
LOC: EC 06:40
DX: U07.1 COVID-19 (principal); S00.93XA Contusion of unspecified part of head, initial encounter; Z88.8 Allergy status to other drugs, medicaments and biological substances; Z91.013 Allergy to seafood; Z88.7 Allergy status to serum and vaccine; Z88.2 Allergy status to sulfonamides; W19.XXXA Unspecified fall, initial encounter
CPT/HCPCS: 99284; 96374; 96375; 71046; 70450; J2060; J1200; J1790